=== PATIENT | female | born 1950 | race Caucasian/White ===

== ENCOUNTER 2025-05-12 12:26 | Inpatient (IN) | payer BC, OTHER ==
[~2025-05-12] VITALS: Ht 167.6 cm; Wt 79.3 kg
[~2025-05-12 12:26] MED LIST: ATEN1TAB; ESOM40CA39; SIMV40TA18; WARF5TAB; calcium
--- NOTE | 2025-05-12 13:03 | ED.PDOC ---
HPI Comments Patient is a 75-year-old female with past medical history of paroxysmal AFib diagnosed in 2020 s/p cardioversion 2022, hypertension, GERD, hypothyroidism, dyslipidemia, peripheral vascular disease s/p left lower extremity grafting, who was brought in by EMS for palpitations that has been ongoing for the past 3 weeks. According to the patient, she has been having increasing palpitations for the past 3 weeks and associated shortness of breaths with exertion for the last 2 weeks, earlier today she drove herself to the [facility] in his area where she was noted to have AFib with RVR, heart rate 120-1 40s and was subsequently brought to the ER by the EMS. According to the patient she had similar symptoms in 2022 when she underwent cardioversion. Patient notes her shortness of breath on exertion was particularly worse on Thursday as she was bringing groceries inside and felt very winded and that she could not catch her breath. On review of systems patient is complaining of shortness of breath on exertion, increasing stress and anxiety, depression but no suicidal or homicidal ideation. Past medical history:paroxysmal AFib diagnosed in 2020 s/p cardioversion 2022, hypertension, GERD, hypothyroidism, dyslipidemia, peripheral vascular disease s/p left lower extremity grafting Past surgical history: Bilateral mastectomy, left lower extremity grafting Home medications: Metoprolol, amlodipine, losartan, Pradaxa 75 mg b.i.d., Lasix 40 mg, levothyroxine 88 mcg, atorvastatin, amlodipine, mirtazapine Social & Personal history: Denies smoking, remote history of 30 pack years. Denies using alcohol, denies using drugs. Lives at home with , son and granddaughter. Allergies: Keflex, Vasotec, sulfa drugs, NSAIDs Patient seen and examined at bedside. Patient is alert and oriented to time, place person and responding to all questions. Eyes: No Pain, No Vision change, No Conjunctivae inflammation, No Eyelid inflammation, No Other, No Redness ENT: No Ear pain, No Ear discharge, No Nose pain, No Nose discharge, No Nose congestion, No Mouth pain, No Mouth swelling, No Throat pain, No Throat swelling, No Other Cardiovascular: No Chest Pain, Palpitations, No Orthopnea, No Paroxysmal No Dyspnea, No Edema, No Lt Headedness, No Other Respiratory: No Cough, No Dry, No Shortness of breath, SOB with exertion, No Wheezing, No Hemoptysis, No Pleuritic Pain, No Sputum, No Other Gastrointestinal: No Nausea, No Vomiting, No Abdominal Pain, No Diarrhea, No Constipation, No Melena, No Hematochezia, No Other Genitourinary: No Dysuria, No Frequency, No Incontinence, No Hematuria, No Retention, No Other Musculoskeletal: No other, No neck pain, No shoulder pain, No arm pain, No back pain, No hand pain, No leg pain, No foot pain Skin: No Rash, No Lesions, No Jaundice, No Bruising, No Other Chief Complaint: Palpitations Time Seen by MD: 12:45 Primary Care Provider: lindsey Sampson Notes: Tectonophysicist Notes Allergies: Coded Allergies: Cephalexin (Verified Adverse Reaction, Mild, sensitive, 11/18/10) Enalapril (Verified Adverse Reaction, Mild, sensitive, 11/18/10) Home Meds Active Scripts Metoprolol Tartrate (Lopressor) 25 Mg Tb, 50 MG PO BID, #60 TAB 5 Refills Prov:THALIA OWUSU MD 05/18/25 Reported Medications Mirtazapine (REMERON) 30 Mg Tab, 15 MG OR, TAB 05/13/25 Amlodipine Besylate (Amlodipine Besylate) 5 Mg Tab, 5 MG PO HS for 30 Days, MG 05/13/25 Allopurinol (Allopurinol) 100 Mg Tab, 100 MG PO DAILY for 30 Days, MG 05/13/25 Atorvastatin Calcium (Lipitor) 10 Mg Tab, 1 TAB PO QPM, #90 TAB 1 Refill 05/13/25 Levothyroxine Sodium (Levothyroxine Sodium) 88 Mcg Tab, 88 MCG PO QAM for 30 Days, MCG 05/13/25 Losartan Potassium (Losartan Potassium) 50 Mg Tab, 50 MG PO DAILY for 30 Days, MG 05/13/25 Pantoprazole Sodium Sesquihydr (Protonix) 40 Mg Tab, 40 MG PO DAILY, #30 TAB 05/13/25 Dabigatran Etexilate Mesylate (Pradaxa) 75 Mg Cap, 1 CAP PO BID, #60 CAP 5 Refills 05/13/25 Potassium Chloride (Klor-Con M20) 20 Meq Tab, 20 MEQ PO, TAB 05/13/25 Furosemide (Furosemide) 40 Mg Tab, 40 MG PO DAILY for 30 Days 05/13/25 [calcium] No Conflict Check 11/18/10 Esomeprazole Magnesium Trihydr (Nexium) 40 Mg Cap 11/18/10 Simvastatin (Simvastatin) 40 Mg Tab 11/18/10 Warfarin Sodium (Coumadin) 5 Mg Tab 11/18/10 Discontinued Reported Medications Metoprolol Succinate (Metoprolol Succinate Er) 25 Mg Tab, 25 MG PO BID for 30 Days, MG 05/13/25 Atenolol (Tenormin) 100 Mg Tab 11/18/10 Information Source: Patient, Emergency Med Personnel Mode of Arrival: EMS Severity: Moderate Timing: Weeks Duration: Since onset Prehospital treatment: 12 Lead EKG, Other (Metoprolol 25 mg p.o. x2) Associated Signs and Symptoms: SOB, Palpitations Past Medical History Surgical History: Hysterectomy Family History Family History: No family hx of Cancer, No family hx of DM, No family hx of HTN Social History Smoker: Quit Greater Than 1 Year Alcohol: Denies ETOH Use Drugs: Denies Drug Use Lives In: Home Physical Exam General Appearance: Mild Distress HEENT: Normal ENT Inspection, PERRL/EOMI Neck: None, Non-Tender, Normal, Normal Inspection Respiratory: Lungs Clear, No Accessory Muscle Use, No Respiratory Distress, Normal Breath Sounds Cardiovascular: Irregular, No Murmur, Tachycardia Breast Exam: Deferred Gastrointestinal: Non Tender, No Pulsatile Mass, Normal Bowel Sounds Genitalia: Deferred Pelvic: Deferred Rectal: Rectal Exam not done Extremities: No calf tenderness, Normal inspection, Normal range of motion, Non-tender, Pedal edema (1+ lower extremity edema) Neurologic: Alert, No Motor Deficits, Normal Mood, No Sensory Deficits Cerebellar Function: NOT DONE Reflexes: NOT DONE Skin: Dry, None, Warm Peripheral Pulses: 2+ dorsalis pedis (R); 1+ dorsalis pedis (L) Lymphatic: NOT DONE Was a procedure done? Was a procedure done?: No CP Differential Dx Differential Diagnosis: A-fib, Anxiety / Panic Attack, Atrial Dysrhythmia, Heart Failure X-Ray, Labs, Meds, VS Vital Signs Date Time Temp Pulse Resp B/P (MAP) Pulse Ox O2 Delivery O2 Flow Rate FiO2 05/12/25 15:11 124 145/64 05/12/25 15:09 124 18 145/64 (91) 95 05/12/25 14:11 117 145/72 05/12/25 13:12 20 Room Air* 0 21 05/12/25 13:12 98.1 123 20 153/113 (126) 97 98.1 05/12/25 13:12 121 05/12/25 12:43 97.6 142 20 123/81 99 97.6 Lab Test 05/12/25 14:25 05/12/25 13:58 05/12/25 13:28 Range/Units Troponin I High Sensitivity 5 5 </=34 ng/L Urine Color Colorless Yellow Urine Clarity Turbid H Clear Urine pH 6.0 5.0-9.0 Urine Specific Rindge 1.005 1.001-1.035 Urine Protein Negative Negative Urine Ketones Negative Negative Urine Blood Negative Negative /uL Urine Nitrite Negative Negative Urine Bilirubin Negative Negative Urine Urobilinogen Normal Negative mg/dL Urine Leukocyte Esterase 3+ Negative /uL Urine RBC 4 0 - 4 /hpf Urine Microscopic WBC 64 H 0-5 /HPF Urine Squamous Epithelial Cells Few <5 /hpf Urine Bacteria Few H None Seen /hpf Urine Glucose Normal Normal mg/dL White Blood Count 8.1 4.4-10.8 10^3/uL Red Blood Count 4.04 4.0-5.20 10^6/uL Hemoglobin 12.6 12.2-16.2 g/dL Hematocrit 37.9 36.0-46.0 % Mean Corpuscular Volume 93.8 80.0-100.0 fL Mean Corpuscular Hemoglobin 31.2 28.0-32.0 pg Mean Corpuscular Hemoglobin Concent 33.3 32.0-36.0 g/dL Red Cell Distribution Width 14.7 H 11.8-14.3 % Platelet Count 227 140-450 10^3/uL Mean Platelet Volume 9.0 6.9-10.8 fL Neutrophils (%) (Auto) 79.8 37.0-80.0 % Lymphocytes (%) (Auto) 12.7 10.0-50.0 % Monocytes (%) (Auto) 5.8 0.0-12.0 % Eosinophils (%) (Auto) 1.1 0.0-7.0 % Basophils (%) (Auto) 0.6 0.0-2.0 % Neutrophils # (Auto) 6.5 1.6-8.6 10 ^3/uL Lymphocytes # (Auto) 1.0 0.4-5.4 10 ^3/uL Monocytes # (Auto) 0.5 0-1.3 10 ^3/uL Eosinophils # (Auto) 0.1 0-0.8 10 ^3/uL Basophils # (Auto) 0 0-0.2 10 ^3/uL Nucleated Red Blood Cells 0.1 % Sodium Level 144 136-145 mmol/L Potassium Level 4.7 3.5-5.1 mmol/L Chloride Level 108 H 98-107 mmol/L Carbon Dioxide Level 23 20-31 mmol/L Anion Gap 13 5-15 Blood Urea Nitrogen 14 9-23 mg/dL Creatinine 1.68 H 0.550-1.02 mg/dL Glomerular Filtration Rate Calc 31 >90 mL/min BUN/Creatinine Ratio 8.3 L 10.0-20.0 Serum Glucose 99 74-106 mg/dL Calcium Level 9.6 8.7-10.4 mg/dL Magnesium Level 2.0 1.6-2.6 mg/dL B-Type Natriuretic Peptide 250.98 0-100 pg/mL Thyroid Stimulating Hormone (TSH) 0.79 0.55-4.78 uIU/mL Microbiology Date/Time Source Procedure Growth Status 05/12/25 13:58 Voided Urine Urine Culture - Final Complete Time of 1ST Reevaluation: 13:45 Reevaluation 1ST: Improved Patient Education/Counseling: Diagnosis, Treatment, Prognosis, Need For Follow Up Family Education/Counseling: No Family Present SEPSIS Sepsis Screen Date sepsis recognized/suspect: May 12, 2025 Time Sepsis recognized/suspect: 1248 Recent Procedure: No On Antibiotic Therapy: No Respiratory Rate >20: No Heart Rate >90: No Temp<36 C (96.8 F) or >38.3 C: No SBP <90 or MAP <65 mmHG: No New Acute Mental Status Change: No Is the patient on CPAP, BIPAP,: No Physician Orders Chest Portable (05/12/25 12:55) Electrocardigram (05/12/25 12:59) Admit (05/12/25 15:10) * Cardiology Consult (05/12/25 15:10) Oxygen By Nasal Cannula (05/12/25 15:10) Echo 2d Mode Cardiac Dop (05/13/25 15:11) Vital Signs Date Time Temp Pulse Resp B/P (MAP) Pulse Ox O2 Delivery O2 Flow Rate FiO2 05/12/25 15:11 124 145/64 05/12/25 15:09 124 18 145/64 (91) 95 05/12/25 14:11 117 145/72 05/12/25 13:12 20 Room Air* 0 21 05/12/25 13:12 98.1 123 20 153/113 (126) 97 98.1 05/12/25 13:12 121 05/12/25 12:43 97.6 142 20 123/81 99 97.6 Laboratory Tests Test 05/12/25 13:28 White Blood Count 8.1 10^3/uL (4.4-10.8) Departure 1 Departure Time of Disposition: 14:00 Impression: Primary Impression: Atrial fibrillation with RVR Additional Impression: IVETT (acute kidney injury) Disposition: ADMITTED INPATIENT Admit to: Tele Condition: Guarded e-Prescriptions Metoprolol Tartrate (Lopressor) 25 Mg Tb 50 MG PO BID, #60 TAB 5 Refills Prov: THALIA OWUSU MD 05/18/25 Critical Care Note Critical Care Time?: No Stability Stability form required: No Heart Score Heart Score: Heart Score Response (Comments) Value History Moderate Suspicious 1 EKG Normal 0 Age >65 2 Risk Factors >3 or Hx ASHD 2 Troponin Normal limit 0 Total 5 ERICA MEREDITH RESIDENT May 12, 2025 13:03
[2025-05-12 13:12] VITALS: RESP 20
--- NOTE | 2025-05-12 13:44 | DVH ---
CHEST RADIOGRAPH INDICATION: sob TECHNIQUE: Single frontal view of the chest was obtained COMPARISON: None FINDINGS: Lines and Tubes: None Lungs: No focal consolidation. Pleura: No effusion. No pneumothorax. Cardiomediastinal contours: Unremarkable Bones: No acute osseous abnormality. IMPRESSION: 1. No acute cardiopulmonary disease.
[2025-05-12 13:52] LABS: Hematocrit 37.9 % (36.0-46.0); Hemoglobin 12.6 g/dL (12.2-16.2); Mean Corpuscular Hemoglobin 31.2 pg (28.0-32.0); Mean Corpuscular Volume 93.8 fL (80.0-100.0); Nucleated Red Blood Cells % 0.1 %
[2025-05-12 13:59] LABS: Potassium 4.7 mmol/L (3.5-5.1); Sodium 144 mmol/L (136-145)
[2025-05-12 14:00] LABS: Anion Gap 13 (5-15); Calcium 9.6 mg/dL (8.7-10.4); Carbon Dioxide 23 mmol/L (20-31); Chloride 108 mmol/L (98-107)
[2025-05-12] MEDS: METOPROLOL TARTRATE 1MG/1ML-5ML VIAL IV ONE (14:00)
[2025-05-12 14:05] LABS: BUN/Creatinine Ratio 8.3 (10.0-20.0); Blood Urea Nitrogen 14 mg/dL (9-23); Glucose 99 mg/dL (74-106)
[2025-05-12 14:06] LABS: Magnesium 2.0 mg/dL (1.6-2.6)
[2025-05-12 14:13] LABS: Urine Protein, UAD Negative (Negative)
--- NOTE | 2025-05-12 16:40 | DVHHPRES ---
History of Present Illness Resident Creating Document: SHASHANK MOORE RESIDENT History of Present Illness 75-year-old female with past medical history of paroxysmal AFib diagnosed in 2020 status post cardioversion, hypertension, gout, hypothyroidism, dyslipidemia, peripheral vascular disease status post left lower extremity richardson ting presented with complaints of palpitation and elevated heart rate. Patient mentioned for last three weeks her blood pressure monitor shows that she has been having heart rate 97-137. She also mentioned associated palpitations. She denied any chest pain and shortness of breath, nausea, vomiting, abdominal pain, dizziness, headache. Patient decided to come to the ER as her elevated heart rate was not getting better. Presenting to the ER patient was diagnosed with AFib with RVR, was given metoprolol IV. Patient mentioned that she was on amiodarone but was recently stopped by her PCP. Patient is currently not on any DOAC. Past medical history paroxysmal AFib diagnosed in 2020 status post cardioversion, hypertension, gout, hypothyroidism, dyslipidemia, peripheral vascular disease status post left lower extremity grafting Surgical history Bilateral mastectomy, lower extremity grafting, cardioversion Medication history Metoprolol, amlodipine, losartan, Pradaxa b.i.d. 75 mg, Lasix, levothyroxine 88 mcg, atorvastatin, amlodipine, metolazone Family history Nonsignificant to the above illness Allergic history Keflex and enalapril, Vasotec, sulfa drugs, NSAIDs Social history Patient used to smoke in the past, quit 20 years ago, smoked for 30 years Denied alcohol, marijuana, any other drug intake Denied caffeine Review of Systems Review of Systems As described in the HPI Allergies: Coded Allergies: Cephalexin (Verified Adverse Reaction, Mild, sensitive, 11/18/10) Enalapril (Verified Adverse Reaction, Mild, sensitive, 11/18/10) Exam Vital Signs Vital Signs Date Time Temp Pulse Resp B/P (MAP) Pulse Ox O2 Delivery O2 Flow Rate FiO2 05/12/25 15:11 124 145/64 05/12/25 15:09 18 95 05/12/25 13:12 Room Air* 0 21 05/12/25 13:12 98.1 98.1 Exam Examination General Appearance: Alert, Oriented X3, Cooperative, No acute distress HEENT: EOMI Respiratory: Clear to auscultation, Normal air movement Cardiovascular: Regular rate, Normal S1, Normal S2 Abdominal: Normal bowel sounds Extremities: No cyanosis, No edema, Normal pulses, No tenderness/swelling Skin: No rashes, No breakdown Neuro: Normal speech and tone Labs/Xrays Labs Test 05/12/25 14:25 05/12/25 13:58 05/12/25 13:28 Range/Units Troponin I High Sensitivity 5 </=34 ng/L Urine Color Colorless Yellow Urine Clarity Turbid H Clear Urine pH 6.0 5.0-9.0 Urine Specific Porter 1.005 1.001-1.035 Urine Protein Negative Negative Urine Ketones Negative Negative Urine Blood Negative Negative /uL Urine Nitrite Negative Negative Urine Bilirubin Negative Negative Urine Urobilinogen Normal Negative mg/dL Urine Leukocyte Esterase 3+ Negative /uL Urine RBC 4 0 - 4 /hpf Urine Microscopic WBC 64 H 0-5 /HPF Urine Squamous Epithelial Cells Few <5 /hpf Urine Bacteria Few H None Seen /hpf Urine Glucose Normal Normal mg/dL White Blood Count 8.1 4.4-10.8 10^3/uL Red Blood Count 4.04 4.0-5.20 10^6/uL Hemoglobin 12.6 12.2-16.2 g/dL Hematocrit 37.9 36.0-46.0 % Mean Corpuscular Volume 93.8 80.0-100.0 fL Mean Corpuscular Hemoglobin 31.2 28.0-32.0 pg Mean Corpuscular Hemoglobin Concent 33.3 32.0-36.0 g/dL Red Cell Distribution Width 14.7 H 11.8-14.3 % Platelet Count 227 140-450 10^3/uL Mean Platelet Volume 9.0 6.9-10.8 fL Neutrophils (%) (Auto) 79.8 37.0-80.0 % Lymphocytes (%) (Auto) 12.7 10.0-50.0 % Monocytes (%) (Auto) 5.8 0.0-12.0 % Eosinophils (%) (Auto) 1.1 0.0-7.0 % Basophils (%) (Auto) 0.6 0.0-2.0 % Neutrophils # (Auto) 6.5 1.6-8.6 10 ^3/uL Lymphocytes # (Auto) 1.0 0.4-5.4 10 ^3/uL Monocytes # (Auto) 0.5 0-1.3 10 ^3/uL Eosinophils # (Auto) 0.1 0-0.8 10 ^3/uL Basophils # (Auto) 0 0-0.2 10 ^3/uL Nucleated Red Blood Cells 0.1 % Sodium Level 144 136-145 mmol/L Potassium Level 4.7 3.5-5.1 mmol/L Chloride Level 108 H 98-107 mmol/L Carbon Dioxide Level 23 20-31 mmol/L Anion Gap 13 5-15 Blood Urea Nitrogen 14 9-23 mg/dL Creatinine 1.68 H 0.550-1.02 mg/dL Glomerular Filtration Rate Calc 31 >90 mL/min BUN/Creatinine Ratio 8.3 L 10.0-20.0 Serum Glucose 99 74-106 mg/dL Calcium Level 9.6 8.7-10.4 mg/dL Magnesium Level 2.0 1.6-2.6 mg/dL B-Type Natriuretic Peptide 250.98 0-100 pg/mL Thyroid Stimulating Hormone (TSH) 0.79 0.55-4.78 uIU/mL SEPSIS Sepsis Screen Date sepsis recognized/suspect: May 12, 2025 Time Sepsis recognized/suspect: 1311 Recent Procedure: No On Antibiotic Therapy: No Respiratory Rate >20: No Heart Rate >90: Yes Temp<36 C (96.8 F) or >38.3 C: No SBP <90 or MAP <65 mmHG: No New Acute Mental Status Change: No Is the patient on CPAP, BIPAP,: No Physician Orders Chest Portable (05/12/25 12:55) Troponin-I Hs (05/12/25 15:55) Electrocardigram (05/12/25 12:59) Admit (05/12/25 15:10) * Cardiology Consult (05/12/25 15:10) Stat Ekg For Chest Pain (05/12/25 15:10) Notify Md Of Changes From Base (05/12/25 15:10) Dental Chair Assembler For 24 Hours (05/12/25 15:10) Emergency Dysrhythmia Protocol (05/12/25 15:10) Rhythm Strips Once Every Shift (05/12/25 15:10) Oxygen By Nasal Cannula (05/12/25 15:10) Echo 2d Mode Cardiac Dop (05/12/25 15:11) Vital Signs Date Time Temp Pulse Resp B/P (MAP) Pulse Ox O2 Delivery O2 Flow Rate FiO2 05/12/25 15:11 124 145/64 05/12/25 15:09 124 18 145/64 (91) 95 05/12/25 14:11 117 145/72 05/12/25 13:12 20 Room Air* 0 21 05/12/25 13:12 98.1 123 20 153/113 (126) 97 98.1 05/12/25 13:12 121 05/12/25 12:43 97.6 142 20 123/81 99 97.6 Laboratory Tests Test 05/12/25 13:28 White Blood Count 8.1 10^3/uL (4.4-10.8) Medications Medications Dose Ordered Sig/Kasi Route Start Time Stop Time Status Last Admin Dose Admin Metoprolol Tartrate 5 mg ONCE ONCE IV 05/12/25 13:00 05/12/25 13:01 DC 05/12/25 14:11 5 MG Assessment/Plan Assessment/Plan Assessment/plan # paroxysmal AFib CHADS-VASc score 4 Has bled score 2 Cardiology on board metoprolol lovenox # ?UTI -urine culture #hypertension -metoprolol -resume home meds #GERD protonix #hypothyroidism levothyroxine #dyslipidemia atorvastatin #peripheral vascular disease status post left lower extremity grafting atorvastatin resume home meds Code status discussed with the patient for greater than 21 minutes, full code Case discussion with Dr. Currie Plan discussed with: Patient, Other My Orders Orders - SHASHANK MOORE RESIDENT Procedure Category Date Status Time Admit ADMIT 05/12/25 Transmitted 15:10 * Cardiology Consult CONS 05/12/25 Transmitted 15:10 Stat Ekg For Chest [facility] 05/12/25 In Process Pain 15:10 Notify Of Changes [facility] 05/12/25 In Process From Base 15:10 Dental Chair Assembler For [facility] 05/12/25 In Process 24 Hours 15:10 Emergency Dysrhythmia ERICA 05/12/25 In Process Protocol 15:10 Rhythm Strips Once [facility] 05/12/25 In Process Every Shift 15:10 Oxygen By Nasal RT 05/12/25 Transmitted Cannula 15:10 Echo 2d Mode Cardiac US 05/12/25 Logged DOP 15:11 Visit Coding STANDARD RES Billing Provider: ELIZABETH CURRIE MD Date of Service if different f: May 12, 2025 Common Visit Codes: [id number] INP/OBS CARE (HIGH) Secondary Visit Codes: [id number] CARE PLAN 30 MINUTES SHASHANK MOORE RESIDENT May 12, 2025 16:40
--- NOTE | 2025-05-12 16:41 | DVHINCON2 ---
Date Seen: May 12, 2025 Referring Physician MD [place] resident Reason for Consultation Afib RVR History of Present Illness This is a 75-year-old female patient who presents to the emergency room with chief complaint of palpitations. The patient reports that she checks her blood pressure and pulse at home every day prior to administering her medications. She reports that for the last three weeks she has noticed that her heart rate has been consistently high. She also reports occasional palpitations at home. This prompted her to come to the emergency room for further evaluation. Initial twelve lead electrocardiogram done in the emergency room reveals atrial fibr illation with rapid ventricular response and underlying right bundle branch block. Initial troponin level of 5ng/L. Significant past medical history includes congestive heart failure, atrial fibrillation/atrial flutter s/p ELDER and direct current cardioversion (on Pradaxa), peripheral arterial disease status post left lower extremity revascularization, hypertension, dyslipidemia, gout, chronic kidney disease, thyroid disease, and history of tobacco use. Past Medical History Past medical history reviewed. No other significant than mentioned above. Past Surgical History Tubal ligation in 1972 Hysterectomy in 1974 Bilateral mastectomy with implants in 1977 Removal of bilateral implants in 1978 Unspecified left foot surgery involving the 4th and 5th digits in 1982 Left common femoral artery endarterectomy and left fem/pop bypass in 2001 Aortobifemoral angiogram with stenting and angioplasty in 2008 Left femoral to below-knee popliteal bypass in 2009 Left leg angio/revascularization in 2010 Emergent left femoral/tibial bypass graft in 2011 ELDER and cardioversion in 2022 Family History Family history reviewed. Social History The patient has a 30 pack-year history, quit smoking 16 years ago Denies illicit drug use Denies alcohol use Allergies: Coded Allergies: Cephalexin (Verified Adverse Reaction, Mild, sensitive, 11/18/10) Enalapril (Verified Adverse Reaction, Mild, sensitive, 11/18/10) Home Meds Reported Medications [calcium] No Conflict Check 11/18/10 Esomeprazole Magnesium Trihydr (Nexium) 40 Mg Cap 11/18/10 Atenolol (Tenormin) 100 Mg Tab 11/18/10 Simvastatin (Simvastatin) 40 Mg Tab 11/18/10 Warfarin Sodium (Coumadin) 5 Mg Tab 11/18/10 Home Meds Home medications reviewed. Review of Systems Constitutional: No symptom reported Ears, Nose, & Throat: No symptom reported Eyes: No symptom reported Neurological: No symptoms reported Pulmonary/Respiratory: No symptoms reported Cardiovascular: Palpitations Gastrointestinal: No symptom reported Genitourinary: No symptom reported Musculoskeletal: No symptom reported Skin: No symptom reported Psychiatric: No symptom reported Endocrine: No symptom reported Hematologic/Lymphatic: No symptom reported Vital Signs Vital Signs Date Time Temp Pulse Resp B/P (MAP) Pulse Ox O2 Delivery O2 Flow Rate FiO2 05/12/25 15:11 124 145/64 05/12/25 15:09 18 95 05/12/25 13:12 Room Air* 0 21 05/12/25 13:12 98.1 98.1 Physical Exam General Appearance: Cooperative. Well-developed. Well-nourished. No acute distress. Pulmonary/Respiratory: Clear, bilateral breaths sounds. Cardiovascular/Chest: Irregularly irregular rate and rhythm Peripheral Pulses: 2+ Radial (R). 2+ Radial (L). 2+ Pedal (R). 2+ Pedal (L) Abdominal Exam: Normal bowel sounds. Ankle Exam: Negative ankle edema Lower extremities: Negative lower extremity edema Neuro/Mental Status: A/OX4, coherent. Thoughts/Psych: Normal thought pattern. Appropriate mood and affect. Good ju dgment and insight. Appearance: No acute distress. Skin Exam: Normal inspection. Normal color. Warm and dry. Labs/Diagnostic Data Labs Test 05/12/25 14:25 05/12/25 13:58 05/12/25 13:28 Range/Units Troponin I High Sensitivity 5 </=34 ng/L Urine Color Colorless Yellow Urine Clarity Turbid H Clear Urine pH 6.0 5.0-9.0 Urine Specific [place] 1.005 1.001-1.035 Urine Protein Negative Negative Urine Ketones Negative Negative Urine Blood Negative Negative /uL Urine Nitrite Negative Negative Urine Bilirubin Negative Negative Urine Urobilinogen Normal Negative mg/dL Urine Leukocyte Esterase 3+ Negative /uL Urine RBC 4 0 - 4 /hpf Urine Microscopic WBC 64 H 0-5 /HPF Urine Squamous Epithelial Cells Few <5 /hpf Urine Bacteria Few H None Seen /hpf Urine Glucose Normal Normal mg/dL White Blood Count 8.1 4.4-10.8 10^3/uL Red Blood Count 4.04 4.0-5.20 10^6/uL Hemoglobin 12.6 12.2-16.2 g/dL Hematocrit 37.9 36.0-46.0 % Mean Corpuscular Volume 93.8 80.0-100.0 fL Mean Corpuscular Hemoglobin 31.2 28.0-32.0 pg Mean Corpuscular Hemoglobin Concent 33.3 32.0-36.0 g/dL Red Cell Distribution Width 14.7 H 11.8-14.3 % Platelet Count 227 140-450 10^3/uL Mean Platelet Volume 9.0 6.9-10.8 fL Neutrophils (%) (Auto) 79.8 37.0-80.0 % Lymphocytes (%) (Auto) 12.7 10.0-50.0 % Monocytes (%) (Auto) 5.8 0.0-12.0 % Eosinophils (%) (Auto) 1.1 0.0-7.0 % Basophils (%) (Auto) 0.6 0.0-2.0 % Neutrophils # (Auto) 6.5 1.6-8.6 10 ^3/uL Lymphocytes # (Auto) 1.0 0.4-5.4 10 ^3/uL Monocytes # (Auto) 0.5 0-1.3 10 ^3/uL Eosinophils # (Auto) 0.1 0-0.8 10 ^3/uL Basophils # (Auto) 0 0-0.2 10 ^3/uL Nucleated Red Blood Cells 0.1 % Sodium Level 144 136-145 mmol/L Potassium Level 4.7 3.5-5.1 mmol/L Chloride Level 108 H 98-107 mmol/L Carbon Dioxide Level 23 20-31 mmol/L Anion Gap 13 5-15 Blood Urea Nitrogen 14 9-23 mg/dL Creatinine 1.68 H 0.550-1.02 mg/dL Glomerular Filtration Rate Calc 31 >90 mL/min BUN/Creatinine Ratio 8.3 L 10.0-20.0 Serum Glucose 99 74-106 mg/dL Calcium Level 9.6 8.7-10.4 mg/dL Magnesium Level 2.0 1.6-2.6 mg/dL B-Type Natriuretic Peptide 250.98 0-100 pg/mL Thyroid Stimulating Hormone (TSH) 0.79 0.55-4.78 uIU/mL Assessment Atrial fibrillation with rapid ventricular response (on Pradaxa) History of direct current cardioversion in 2022 Rule out structural heart disease History of peripheral arterial disease status post left lower extremity revascularization Hypertension Dyslipidemia Chronic kidney disease Thyroid disease Gout History of tobacco use Plan/Recommendation We will continue with the following plan/recommendations (Dr. Matthews): * Transthoracic echocardiogram to evaluate cardiac function * [id number] VASc score: 6 points, HAS-BLED score: 1 point * Therapeutic Lovenox while inpatient, transition back to DOAC (Pradaxa) prior to discharge * Beta-candido for rate control; up titrate as tolerated * Avoid antiarrhythmic agent at this time given unknown duration of atrial f ibrillation * Monitor and replete electrolytes as needed, keep potassium greater than four and magnesium greater than two * Continue lipid-lowering agent * Blood pressure control * Close cardiac surveillance Thank you for allowing us to care for this patient. Please call with any questions or concerns. Critical care time spent: 44 minutes This medical document was created using an electronic medical record system with voice recognition software and computerized dictation system. Although this do cument has been carefully reviewed, there might still be some phonetic and typographical errors. Occasional wrong-word or ``sound-alike substitutions may have occurred due to the inherent limitations of voice recognition software. These areas are purely typographical due to imperfections of the software programs and do not reflect any compromise in the patient's medical care. Please read the chart carefully and recognize, using context, where these substitutions have occurred. Plan discussed with: Patient NYHA Physical activity limitations: NA Date of Service: May 12, 2025 Billing Provider: ABI SCHAFER Cardiology Common Codes: [id number] INP/OBS CARE (High) Cardiology Consultation Codes: [id number] CONSULT <45MIN ABI SCHAFER May 12, 2025 16:41
[2025-05-12 17:58] LABS: INR 1.17 (0.9-1.15); Partial Thromboplastin Time 43.5 SEC (24.5-34.5); Prothrombin Time 12.2 sec (9.3-11.8)
[2025-05-12 17:59] LABS: Alanine Aminotransferase 15.0 U/L (7-40); Albumin 4.4 g/dL (3.2-4.8); Bilirubin, Direct 0.2 mg/dL (<0.3); Bilirubin, Total 0.6 mg/dL (0.2-1.0); Cholesterol 112.0 mg/dL (< 200); Total Protein 6.9 g/dL (5.7-8.2); Triglycerides 137.0 mg/dL (< 150)
[2025-05-12 18:05] LABS: Alkaline Phosphatase 130.0 U/L (46-116); HDL Cholesterol 36.0 mg/dL (40-59)
[2025-05-12] MEDS: PANTOPRAZOLE 40 MG TAB PO ONE (18:49)
[2025-05-12] MEDS: LEVOTHYROXINE SODIUM 88 MCG TAB PO ONE (18:50)
[2025-05-12] MEDS: METOPROLOL TARTRATE 25 MG TAB PO ONE (18:53)
--- NOTE | 2025-05-12 23:04 | DVHINCON2 ---
Date Seen: May 12, 2025 Referring Physician MD [place] resident Reason for Consultation Afib RVR History of Present Illness This is a 75-year-old female with a past medical history includes congestive heart failure, atrial fibrillation/atrial flutter s/p ELDER and direct current cardioversion (on Pradaxa), peripheral arterial disease status post left lower extremity revascularization, hypertension, dyslipidemia, gout, chronic kidney disease, thyroid disease, and history of tobacco use who presents to the emergency room with a complaint of palpitations. The patient reports that she checks her blood pressure and pulse at home every day prior to administering her medications. She reports that for the last three weeks she has noticed that her heart rate has been consistently high. She also reports occasional palpitations at home. This prompted her to come to the emergency room for further evaluation. Initial twelve lead electrocardiogram done in the emergency room reveals atrial fibrillation with rapid ventricular response and underlying right bundle branch block. Initial troponin level of 5ng/L. Chest x-ray showed NAD. Patient was admitted to the hospital. I am asked to consult on this patient. Past Medical History Past medical history reviewed. No other significant than mentioned above. Past Surgical History Tubal ligation in 1972 Hysterectomy in 1974 Bilateral mastectomy with implants in 1977 Removal of bilateral implants in 1978 Unspecified left foot surgery involving the 4th and 5th digits in 1982 Left common femoral artery endarterectomy and left fem/pop bypass in 2001 Aortobifemoral angiogram with stenting and angioplasty in 2008 Left femoral to below-knee popliteal bypass in 2009 Left leg angio/revascularization in 2010 Emergent left femoral/tibial bypass graft in 2011 ELDER and cardioversion in 2022 Allergies: Coded Allergies: Cephalexin (Verified Adverse Reaction, Mild, sensitive, 11/18/10) Enalapril (Verified Adverse Reaction, Mild, sensitive, 11/18/10) Home Meds Reported Medications [calcium] No Conflict Check 11/18/10 Esomeprazole Magnesium Trihydr (Nexium) 40 Mg Cap 11/18/10 Atenolol (Tenormin) 100 Mg Tab 11/18/10 Simvastatin (Simvastatin) 40 Mg Tab 11/18/10 Warfarin Sodium (Coumadin) 5 Mg Tab 11/18/10 Current Medications Current Medications Medications (Trade) Dose Ordered Sig/Kasi Route PRN Reason Start Time Stop Time Status Last Admin Metoprolol Tartrate (Lopressor Tablet) 25 mg BID PO 05/12/25 22:00 Pantoprazole Sodium (Protonix Tablet) 40 mg DAILY@0600 PO 05/13/25 06:00 Levothyroxine Sodium (Synthroid Tablet) 88 mcg QAM@0600 PO 05/13/25 06:00 Atorvastatin Calcium (Lipitor) 40 mg HS PO 05/12/25 22:00 Levofloxacin 100 ml @ 100 mls/hr DAILY IV 05/13/25 10:00 05/12/25 18:25 DC Enoxaparin Sodium (Lovenox) 80 mg Q12HR SC 05/12/25 22:00 Review of Systems Constitutional: No symptom reported Ears, Nose, & Throat: No symptom reported Eyes: No symptom reported Neurological: No symptoms reported Pulmonary/Respiratory: No symptoms reported Cardiovascular: Palpitations Gastrointestinal: No symptom reported Genitourinary: No symptom reported Musculoskeletal: No symptom reported Skin: No symptom reported Psychiatric: No symptom reported Endocrine: No symptom reported Hematologic/Lymphatic: No symptom reported Vital Signs Vital Signs Date Time Temp Pulse Resp B/P (MAP) Pulse Ox O2 Delivery O2 Flow Rate FiO2 05/12/25 18:53 113 115/73 05/12/25 15:09 18 95 05/12/25 13:12 Room Air* 0 21 05/12/25 13:12 98.1 98.1 Physical Exam GENERAL: Alert and oriented x 3. No acute distress. EYES: PERRL, EOMI. Anicteric. HENT: Moist mucous membranes. LUNGS: Clear to auscultation bilaterally. CARDIOVASCULAR: Irregular rate and rhythm. ABDOMEN: Soft, nontender and nondistended. EXTREMITIES: No edema. NEUROLOGIC: No focal neurological deficits. SKIN: Warm, dry. Labs/Diagnostic Data Labs Test 05/12/25 16:50 05/12/25 13:58 05/12/25 13:28 Range/Units Prothrombin Time 12.2 H 9.3-11.8 sec Prothrombin Time INR 1.17 H 0.9-1.15 Activated Partial Thromboplast Time 43.5 H 24.5-34.5 SEC Total Bilirubin 0.6 0.2-1.0 mg/dL Direct Bilirubin 0.2 <0.3 mg/dL Aspartate Amino Transferase (AST) 21 13-40 U/L Alanine Aminotransferase (ALT) 15 7-40 U/L Alkaline Phosphatase 130 H 46-116 U/L Troponin I High Sensitivity 7 </=34 ng/L Total Protein 6.9 5.7-8.2 g/dL Albumin 4.4 3.2-4.8 g/dL Triglycerides Level 137 < 150 mg/dL Cholesterol Level 112 < 200 mg/dL LDL Cholesterol 57 < 100 mg/dL HDL Cholesterol 36 L 40-59 mg/dL Urine Color Colorless Yellow Urine Clarity Turbid H Clear Urine pH 6.0 5.0-9.0 Urine Specific [place] 1.005 1.001-1.035 Urine Protein Negative Negative Urine Ketones Negative Negative Urine Blood Negative Negative /uL Urine Nitrite Negative Negative Urine Bilirubin Negative Negative Urine Urobilinogen Normal Negative mg/dL Urine Leukocyte Esterase 3+ Negative /uL Urine RBC 4 0 - 4 /hpf Urine Microscopic WBC 64 H 0-5 /HPF Urine Squamous Epithelial Cells Few <5 /hpf Urine Bacteria Few H None Seen /hpf Urine Glucose Normal Normal mg/dL White Blood Count 8.1 4.4-10.8 10^3/uL Red Blood Count 4.04 4.0-5.20 10^6/uL Hemoglobin 12.6 12.2-16.2 g/dL Hematocrit 37.9 36.0-46.0 % Mean Corpuscular Volume 93.8 80.0-100.0 fL Mean Corpuscular Hemoglobin 31.2 28.0-32.0 pg Mean Corpuscular Hemoglobin Concent 33.3 32.0-36.0 g/dL Red Cell Distribution Width 14.7 H 11.8-14.3 % Platelet Count 227 140-450 10^3/uL Mean Platelet Volume 9.0 6.9-10.8 fL Neutrophils (%) (Auto) 79.8 37.0-80.0 % Lymphocytes (%) (Auto) 12.7 10.0-50.0 % Monocytes (%) (Auto) 5.8 0.0-12.0 % Eosinophils (%) (Auto) 1.1 0.0-7.0 % Basophils (%) (Auto) 0.6 0.0-2.0 % Neutrophils # (Auto) 6.5 1.6-8.6 10 ^3/uL Lymphocytes # (Auto) 1.0 0.4-5.4 10 ^3/uL Monocytes # (Auto) 0.5 0-1.3 10 ^3/uL Eosinophils # (Auto) 0.1 0-0.8 10 ^3/uL Basophils # (Auto) 0 0-0.2 10 ^3/uL Nucleated Red Blood Cells 0.1 % Sodium Level 144 136-145 mmol/L Potassium Level 4.7 3.5-5.1 mmol/L Chloride Level 108 H 98-107 mmol/L Carbon Dioxide Level 23 20-31 mmol/L Anion Gap 13 5-15 Blood Urea Nitrogen 14 9-23 mg/dL Creatinine 1.68 H 0.550-1.02 mg/dL Glomerular Filtration Rate Calc 31 >90 mL/min BUN/Creatinine Ratio 8.3 L 10.0-20.0 Serum Glucose 99 74-106 mg/dL Calcium Level 9.6 8.7-10.4 mg/dL Magnesium Level 2.0 1.6-2.6 mg/dL B-Type Natriuretic Peptide 250.98 0-100 pg/mL Thyroid Stimulating Hormone (TSH) 0.79 0.55-4.78 uIU/mL Assessment Atrial fibrillation with rapid ventricular response (on Pradaxa). History of direct current cardioversion in 2022. Rule out structural heart disease. History of peripheral arterial disease status post left lower extremity revascularization. Hypertension. Dyslipidemia. Chronic kidney disease. Thyroid disease. Gout. History of tobacco use. Plan/Recommendation I agree with your ongoing assessment and care of plan. Patient has been seen by Sadia Salgado NP on my behalf, her and I discussed the plan with the patient. Transthoracic echocardiogram to evaluate cardiac function. [id number] VASc score: 6 points, HAS-BLED score: 1 point. Therapeutic Lovenox while inpatient, transition back to DOAC (Pradaxa) prior to discharge. Beta-candido for rate control; up titrate as tolerated. Avoid antiarrhythmic agent at this time given unknown duration of atrial fibrill ation. Monitor and replete electrolytes as needed, keep potassium greater than four and magnesium greater than two. Continue lipid-lowering agent. Blood pressure control. Close cardiac surveillance. Additional plan as per the hospital course. Plan discussed with: Patient NYHA Physical activity limitations: NA Date of Service: May 12, 2025 Billing Provider: LORIN KASPER MD Cardiology Common Codes: [id number] INP/OBS CARE (High) Cardiology Consultation Codes: [id number] CONSULT <45MIN LORIN KASPER MD May 12, 2025 22:12
[2025-05-12] MEDS: METOPROLOL TARTRATE 25 MG TAB PO SCH (23:36)
[2025-05-12] MEDS: ENOXAPARIN SOD 80 MG/0.8ML SYRINGE SC SCH (23:37)
[2025-05-12] MEDS: ATORVASTATIN 20 MG TAB PO SCH (23:38)
[2025-05-13] VITALS (7 sets, daily range): BP systolic 102–145; BP diastolic 53–76; PULSE 69–98; RESP 14–17; TEMP 97.4–98.3; O2SAT 93–98
[2025-05-13] MEDS ORDERED: ATOR10TA PO (00:50)
[2025-05-13] MEDS ORDERED: ALLO100T PO (00:50)
[2025-05-13] MEDS ORDERED: FURO40TA4 PO (00:50)
[2025-05-13] MEDS ORDERED: LOSA-534 PO (00:50)
[2025-05-13] MEDS ORDERED: PANT40TA2 PO (00:50)
[2025-05-13] MEDS ORDERED: DABI75CA5 PO (00:50)
[2025-05-13] MEDS ORDERED: METO25TA93 PO (00:50)
[2025-05-13] MEDS ORDERED: LEVO88TA4 PO (00:50)
[2025-05-13] MEDS ORDERED: POTA-220 PO (00:50)
[2025-05-13] MEDS ORDERED: MIRT-94 OR (00:53)
[2025-05-13] MEDS ORDERED: AMLO1TAB22 PO (00:53)
[2025-05-13] MEDS: LEVOTHYROXINE SODIUM 88 MCG TAB PO SCH (06:27)
[2025-05-13] MEDS: PANTOPRAZOLE 40 MG TAB PO SCH (06:27)
[2025-05-13 07:06] LABS: Hematocrit 34.0 % (36.0-46.0); Hemoglobin 11.6 g/dL (12.2-16.2); Mean Corpuscular Hemoglobin 31.8 pg (28.0-32.0); Mean Corpuscular Volume 93.0 fL (80.0-100.0); Nucleated Red Blood Cells % 0.0 %
[2025-05-13 07:29] LABS: Alkaline Phosphatase 110 U/L (46-116); Anion Gap 12 (5-15); BUN/Creatinine Ratio 11.3 (10.0-20.0); Blood Urea Nitrogen 17 mg/dL (9-23); Calcium 9.0 mg/dL (8.7-10.4); Carbon Dioxide 25 mmol/L (20-31); Chloride 107 mmol/L (98-107); Glucose 82 mg/dL (74-106); Magnesium 2.0 mg/dL (1.6-2.6); Potassium 3.9 mmol/L (3.5-5.1); Sodium 144 mmol/L (136-145); Total Protein 6.4 g/dL (5.7-8.2)
[2025-05-13 07:30] LABS: Albumin 3.9 g/dL (3.2-4.8); Bilirubin, Total 0.7 mg/dL (0.2-1.0)
[2025-05-13 07:32] LABS: Alanine Aminotransferase < 9 U/L (7-40)
[2025-05-13] MEDS ORDERED: METOPROLOL TARTRATE 50 MG TAB PO ONE (10:45)
[2025-05-13] MEDS: METOPROLOL TARTRATE 25 MG TAB PO ONE (11:56)
--- NOTE | 2025-05-13 12:38 | DVHPN2 ---
Consult Progress Note Subjective Patient reports: Feels better Other Systems: Patient still in atrial fibrillation on personnel monitor, rate now in 90s- low 100's Objective vital signs Vital Sign Date Time Temp Pulse Resp B/P (MAP) Pulse Ox O2 Delivery O2 Flow Rate FiO2 05/13/25 11:56 98 123/69 05/13/25 08:47 98.1 16 93 98.1 05/13/25 08:00 Room Air* 0 21 Total Intake and Output 05/12/25 05/12/25 05/13/25 15:00 23:00 07:00 Intake Total 250 ml Output Total 0 ml Balance 250 ml medications Current Medications Medications Dose Ordered Sig/Kasi Route Start Time Stop Time Status Last Admin Dose Admin Pantoprazole Sodium 40 mg DAILY@0600 PO 05/13/25 06:00 05/13/25 06:27 40 MG Levothyroxine Sodium 88 mcg QAM@0600 PO 05/13/25 06:00 05/13/25 06:27 88 MCG Atorvastatin Calcium 40 mg HS PO 05/12/25 22:00 05/12/25 23:38 40 MG Enoxaparin Sodium 80 mg Q12HR SC 05/12/25 22:00 05/13/25 10:30 80 MG Metoprolol Tartrate 50 mg BID PO 05/13/25 22:00 Examination: GENERAL:Normal, LUNGS:Normal, CVS:Abnormal (Atrial fibrillation), NEURO:Normal laboratory and microbiology Laboratory Tests 05/13/25 06:07 Test 05/13/25 06:07 Range/Units Serum Glucose 82 74-106 mg/dL Problem List/Assessment/Plan Problem List/Assessment/Plan Atrial fibrillation with rapid ventricular response (on Pradaxa) History of direct current cardioversion in 2022 Rule out structural heart disease History of peripheral arterial disease status post left lower extremity revascularization Hypertension Dyslipidemia Chronic kidney disease Thyroid disease Gout History of tobacco use Plan/Recommendation (Dr. Matthews): * Transthoracic echocardiogram to evaluate cardiac function * [id number] VASc score: 6 points, HAS-BLED score: 1 point * Therapeutic Lovenox while inpatient, transition back to DOAC (Pradaxa) prior to discharge * Beta-candido for rate control; up titrate as tolerated * Avoid antiarrhythmic agent at this time given unknown duration of atrial fibrillation * Monitor and replete electrolytes as needed, keep potassium greater than four and magnesium greater than two * Continue lipid-lowering agent * Blood pressure control * Close cardiac surveillance Thank you for allowing us to care for this patient. Please call with any questions or concerns. This medical document was created using an electronic medical record system with voice recognition software and computerized dictation system. Although this document has been carefully reviewed, there might still be some phonetic and typographical errors. Occasional wrong-word or ``sound-alike substitutions may have occurred due to the inherent limitations of voice recognition software. These areas are purely typographical due to imperfections of the software programs and do not reflect any compromise in the patient's medical care. Please read the chart carefully and recognize, using context, where these substitutions have occurred. Plan discussed with: Patient, Son Date of Service: May 13, 2025 Billing Provider: ABI SCHAFER Common Visit Codes: [id number] INP/OBS CARE(HIGH) ABI SCHAFER May 13, 2025 12:38
--- NOTE | 2025-05-13 13:10 | DVHPN2 ---
Subjective HF improved Reviewed: H&P Changes from previous H/P or p: No Changes Objective Vitals Vital Signs Date Time Temp Pulse Resp B/P (MAP) Pulse Ox O2 Delivery O2 Flow Rate FiO2 05/13/25 12:46 97.8 95 17 126/68 (87) 93 97.8 05/13/25 08:00 Room Air* 0 21 Intake/Output Intake and Output 05/13/25 07:00 Intake Total 250 ml Output Total 0 ml Balance 250 ml Intake Oral 250 ml Output Stool Total 0 ml # Voids 1 General Appearance: Alert, Oriented X3 HEENT: Atraumatic Cardiovascular: Regular rate, Normal S1, Normal S2 Abdomen: Normal bowel sounds Medications Current Medications Medications Dose Ordered Sig/Kasi Route Start Time Stop Time Status Last Admin Dose Admin Pantoprazole Sodium 40 mg DAILY@0600 PO 05/13/25 06:00 05/13/25 06:27 40 MG Levothyroxine Sodium 88 mcg QAM@0600 PO 05/13/25 06:00 05/13/25 06:27 88 MCG Atorvastatin Calcium 40 mg HS PO 05/12/25 22:00 05/12/25 23:38 40 MG Enoxaparin Sodium 80 mg Q12HR SC 05/12/25 22:00 05/13/25 10:30 80 MG Metoprolol Tartrate 50 mg BID PO 05/13/25 22:00 Laboratory Results Laboratory Tests 05/13/25 06:07 Chemistry Test 05/12/25 13:28 05/12/25 16:50 05/13/25 06:07 Calcium Level 9.6 mg/dL (8.7-10.4) 9.0 mg/dL (8.7-10.4) Magnesium Level 2.0 mg/dL (1.6-2.6) 2.0 mg/dL (1.6-2.6) Albumin 4.4 g/dL (3.2-4.8) 3.9 g/dL (3.2-4.8) Total Protein 6.9 g/dL (5.7-8.2) 6.4 g/dL (5.7-8.2) Coagulation Test 05/12/25 16:50 Prothrombin Time 12.2 sec (9.3-11.8) H Prothrombin Time INR 1.17 (0.9-1.15) H Activated Partial Thromboplast Time 43.5 SEC (24.5-34.5) H Lipid panel Test 05/12/25 16:50 Cholesterol Level 112 mg/dL (< 200) HDL Cholesterol 36 mg/dL (40-59) L Triglycerides Level 137 mg/dL (< 150) Cardiac Markers Test 05/12/25 13:28 B-Type Natriuretic Peptide 250.98 pg/mL (0-100) LFT Test 05/12/25 16:50 05/13/25 06:07 Alanine Aminotransferase (ALT) 15 U/L (7-40) < 9 U/L (7-40) Alkaline Phosphatase 130 U/L (46-116) H 110 U/L (46-116) Aspartate Amino Transferase (AST) 21 U/L (13-40) 16 U/L (13-40) Direct Bilirubin 0.2 mg/dL (<0.3) Total Bilirubin 0.6 mg/dL (0.2-1.0) 0.7 mg/dL (0.2-1.0) HgA1c, TSH Test 05/12/25 13:28 05/13/25 06:07 Thyroid Stimulating Hormone (TSH) 0.79 uIU/mL (0.55-4.78) Hemoglobin A1c 5.5 % A1C (<5.7) Urinalysis Test 05/12/25 13:58 Urine Color Colorless (Yellow) Urine Clarity Turbid (Clear) H Urine pH 6.0 (5.0-9.0) Urine Specific [place] 1.005 (1.001-1.035) Urine Protein Negative (Negative) Urine Ketones Negative (Negative) Urine Blood Negative /uL (Negative) Urine Nitrite Negative (Negative) Urine Bilirubin Negative (Negative) Urine Urobilinogen Normal mg/dL (Negative) Urine Leukocyte Esterase 3+ /uL (Negative) Urine RBC 4 /hpf (0 - 4) Urine Microscopic WBC 64 /HPF (0-5) H Urine Squamous Epithelial Cells Few /hpf (<5) Urine Bacteria Few /hpf (None Seen) H Urine Glucose Normal mg/dL (Normal) Assessment/Plan Assessment/Plan # paroxysmal AFib CHADS-VASc score 4 Has bled score 2 Cardiology on board metoprolol lovenox # ?UTI -urine culture #hypertension -metoprolol -resume home meds GERD protonix hypothyroidism levothyroxine dyslipidemia atorvastatin Plan discussed with: Patient Date of Service: May 13, 2025 Billing Provider: PETE COOK MD Common Visit Codes: [id number] INP/OBS CARE(HIGH) PETE COOK MD May 13, 2025 13:10
[2025-05-13] MEDS: METOPROLOL TARTRATE 25 MG TAB PO SCH (22:00)
--- NOTE | 2025-05-13 22:35 | DVHPN2 ---
Consult Progress Note Subjective Patient reports: Feels better Other Systems: Patient was seen and evaluated in follow up. Patient still in atrial fibrillation on residential monitor, rate now in 90s- low 100's. Telemetry reviewed. Objective vital signs Vital Sign Date Time Temp Pulse Resp B/P (MAP) Pulse Ox O2 Delivery O2 Flow Rate FiO2 05/13/25 12:46 97.8 95 17 126/68 (87) 93 97.8 05/13/25 08:00 Room Air* 0 21 Total Intake and Output 05/12/25 05/12/25 05/13/25 15:00 23:00 07:00 Intake Total 250 ml Output Total 0 ml Balance 250 ml medications Current Medications Medications Dose Ordered Sig/Kasi Route Start Time Stop Time Status Last Admin Dose Admin Pantoprazole Sodium 40 mg DAILY@0600 PO 05/13/25 06:00 05/13/25 06:27 40 MG Levothyroxine Sodium 88 mcg QAM@0600 PO 05/13/25 06:00 05/13/25 06:27 88 MCG Atorvastatin Calcium 40 mg HS PO 05/12/25 22:00 05/12/25 23:38 40 MG Enoxaparin Sodium 80 mg Q12HR SC 05/12/25 22:00 05/13/25 10:30 80 MG Metoprolol Tartrate 50 mg BID PO 05/13/25 22:00 Examination: GENERAL:Normal, LUNGS:Normal, CVS:Abnormal (Atrial fibrillation), NEURO:Normal laboratory and microbiology Laboratory Tests 05/13/25 06:07 Test 05/13/25 06:07 Range/Units Serum Glucose 82 74-106 mg/dL Problem List/Assessment/Plan Problem List/Assessment/Plan Problem List Atrial fibrillation with rapid ventricular response (on Pradaxa). History of direct current cardioversion in 2022. Rule out structural heart disease. History of peripheral arterial disease status post left lower extremity revascularization. Hypertension. Dyslipidemia. Chronic kidney disease. Thyroid disease. Gout. History of tobacco use. Plan/Recommendation Continued all current supportive medical care. Patient has been seen by Sadia Salgado NP on my behalf, her and I discussed the plan with the patient. Transthoracic echocardiogram to evaluate cardiac function. [id number] VASc score: 6 points, HAS-BLED score: 1 point. Therapeutic Lovenox while inpatient, transition back to DOAC (Pradaxa) prior to discharge. Beta-candido for rate control; up titrate as tolerated. Avoid antiarrhythmic agent at this time given unknown duration of atrial fibrillation. Monitor and replete electrolytes as needed, keep potassium greater than four and magnesium greater than two. Continue lipid-lowering agent. Blood pressure control. Close cardiac surveillance. Additional plan as per the hospital course. Plan discussed with: Patient Date of Service: May 13, 2025 Billing Provider: LORIN KASPER MD Cardiology Common Codes: [id number] HOSP CARE([facility] LORIN KASPER MD May 13, 2025 13:42
[2025-05-14] VITALS (9 sets, daily range): BP systolic 112–141; BP diastolic 52–86; PULSE 66–142; RESP 15–18; TEMP 97.7–98.5; O2SAT 92–96
--- NOTE | 2025-05-14 00:45 | DVHSR ---
APPROVED REPORT EXAM: Two-dimensional and M-mode echocardiogram with Doppler and color Doppler. Blood Pressure: 124/76 mmHg INDICATION Atrial Fibrillation RISK FACTORS Height: 5'6", Weight: 174 DIMENSIONS LVDd 4.9 (3.8-5.7cm) LA (2D) 4.1 (1.9-4.0cm) Aortic Root 3.0 (2.0-3.7cm) LVDs 3.6 (2.5-4.0cm) LA (MM) (1.9-4.0cm) Aortic Cusp Exc 1.6 (1.5-2.0cm) EF (%) 45.0 (55-70%) Rt. Atrium 4.6 (1.9-4.0cm) Asc. Aorta cm IVSd 0.9 (0.7-1.1cm) RV (D) (1.8-2.4cm) PWd 1.0 (0.7-1.1cm) Mitral Valve Mitral Mitral Stenosis E wave 0.98m/s MV Mean GR. mmHg E/A ratio 0.0 2D MVA cm2 Aortic Valve Aortic Valve Aortic Stenosis V1 0.65m/s AO Mean GR. 3mmHg V2 1.12m/s AO Peak GR. 5mmHg LVOT Diameter 1.8 (1.8-2.4cm) Doppler YOEL 1.48cm2 Pulmonic Valve V2 0.89m/s Tricuspid Valve TR Velocity 2.66m/s RVSP 36mmHg Other Information Quality : Rhythm : Atrial Fibrillation Conclusion MILD LVH AND MILD LV DIASTOLIC DYSFUNCTION LV EF IS IN RANGE OF 40% MILD GLOBAL LV HYPOKINESIS MODERATELY DILATED RV ,RA AND LA MODERATE DEGREE RV HYPOKINESIS NORMAL VALVES NO EFFUSION MILD PULMONARY HYPERTENSION
--- NOTE | 2025-05-14 10:07 | ECG ---
[facility] Test Date: 2025-05-12 Test Time: 12:27:37 Pat Name: DAVONTE SALAZAR Department: ED Room: 0223T B Gender: F System Support Administrator: JASPREET : 1950 Requested By: CHANDU GAR Order Number: [id number] Reading MD: Cr Moreno Measurements Intervals [place] Rate: 124 P: 0 PA: 0 QRS: 103 QRSD: 138 T: -23 QT: 350 QTc: 503 Interpretive Statements Atrial fibrillation RBBB and LPFB Electronically Signed On 05-18-2025 8:29:19 PST by Cr Moreno Please click the below link to view image of tracing.
[2025-05-14 15:59] LABS: Hematocrit 35.9 % (36.0-46.0); Hemoglobin 12.2 g/dL (12.2-16.2); Mean Corpuscular Hemoglobin 31.5 pg (28.0-32.0); Mean Corpuscular Volume 92.9 fL (80.0-100.0); Nucleated Red Blood Cells % 0.1 %
--- NOTE | 2025-05-14 16:00 | DVHPN2 ---
Subjective HF improved Reviewed: H&P Changes from previous H/P or p: No Changes Objective Vitals Vital Signs Date Time Temp Pulse Resp B/P (MAP) Pulse Ox O2 Delivery O2 Flow Rate FiO2 05/14/25 13:00 98.2 66 18 112/81 (91) 96 98.2 05/14/25 08:05 Room Air* 0 21 Intake/Output Intake and Output 05/14/25 05:00 Intake Total 1525 ml Balance 1525 ml Intake Oral 1525 ml # Voids 6 # Bowel Movements 3 General Appearance: Alert, Oriented X3 HEENT: Atraumatic Cardiovascular: Regular rate, Normal S1, Normal S2 Abdomen: Normal bowel sounds Medications Current Medications Medications Dose Ordered Sig/Kasi Route Start Time Stop Time Status Last Admin Dose Admin Pantoprazole Sodium 40 mg DAILY@0600 PO 05/13/25 06:00 05/14/25 05:23 40 MG Levothyroxine Sodium 88 mcg QAM@0600 PO 05/13/25 06:00 05/14/25 05:23 88 MCG Atorvastatin Calcium 40 mg HS PO 05/12/25 22:00 05/13/25 22:13 40 MG Enoxaparin Sodium 80 mg Q12HR SC 05/12/25 22:00 05/14/25 07:51 80 MG Metoprolol Tartrate 50 mg BID PO 05/13/25 22:00 05/14/25 07:51 50 MG Laboratory Results Chemistry Test 05/14/25 15:40 Calcium Level Pending Urinalysis Test 05/12/25 13:58 Urine Color Colorless (Yellow) Urine Clarity Turbid (Clear) H Urine pH 6.0 (5.0-9.0) Urine Specific [place] 1.005 (1.001-1.035) Urine Protein Negative (Negative) Urine Ketones Negative (Negative) Urine Blood Negative /uL (Negative) Urine Nitrite Negative (Negative) Urine Bilirubin Negative (Negative) Urine Urobilinogen Normal mg/dL (Negative) Urine Leukocyte Esterase 3+ /uL (Negative) Urine RBC 4 /hpf (0 - 4) Urine Microscopic WBC 64 /HPF (0-5) H Urine Squamous Epithelial Cells Few /hpf (<5) Urine Bacteria Few /hpf (None Seen) H Urine Glucose Normal mg/dL (Normal) Microbiology Microbiology Date/Time Source Procedure Growth Status 05/12/25 13:58 Voided Urine Urine Culture - Preliminary Resulted Assessment/Plan Assessment/Plan # paroxysmal AFib CHADS-VASc score 4 Has bled score 2 Cardiology on board metoprolol increase since HR uncontrolled now 50mg BID lovenox # ?UTI -urine culture negative no further workup #hypertension -metoprolol -resume home meds GERD protonix hypothyroidism levothyroxine dyslipidemia atorvastatin Plan discussed with: Patient Date of Service: May 14, 2025 Billing Provider: PETE COOK MD Common Visit Codes: [id number] INP/OBS CARE(HIGH) PETE COOK MD May 14, 2025 16:00
[2025-05-14 16:05] LABS: Chloride 107 mmol/L (98-107); Potassium 4.7 mmol/L (3.5-5.1); Sodium 144 mmol/L (136-145)
[2025-05-14 16:06] LABS: Anion Gap 9 (5-15); Carbon Dioxide 28 mmol/L (20-31)
[2025-05-14 16:07] LABS: Calcium 9.6 mg/dL (8.7-10.4)
[2025-05-14 16:11] LABS: Glucose 98 mg/dL (74-106)
[2025-05-14 16:12] LABS: BUN/Creatinine Ratio 10.2 (10.0-20.0); Blood Urea Nitrogen 17 mg/dL (9-23)
--- NOTE | 2025-05-14 18:16 | DVHPN2 ---
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 Objective vital signs Vital Sign Date Time Temp Pulse Resp B/P (MAP) Pulse Ox O2 Delivery O2 Flow Rate FiO2 05/14/25 17:00 97.8 85 16 140/70 (93) 94 97.8 05/14/25 08:05 Room Air* 0 21 Total Intake and Output 05/13/25 05/13/25 05/14/25 15:00 23:00 07:00 Intake Total 1200 ml 325 ml Balance 1200 ml 325 ml medications Current Medications Medications Dose Ordered Sig/Kasi Route Start Time Stop Time Status Last Admin Dose Admin Pantoprazole Sodium 40 mg DAILY@0600 PO 05/13/25 06:00 05/14/25 05:23 40 MG Levothyroxine Sodium 88 mcg QAM@0600 PO 05/13/25 06:00 05/14/25 05:23 88 MCG Atorvastatin Calcium 40 mg HS PO 05/12/25 22:00 05/13/25 22:13 40 MG Enoxaparin Sodium 80 mg Q12HR SC 05/12/25 22:00 05/14/25 07:51 80 MG Metoprolol Tartrate 50 mg BID PO 05/13/25 22:00 05/14/25 07:51 50 MG Examination: GENERAL:Normal, LUNGS:Normal, CVS:Normal, NEURO:Normal laboratory and microbiology Laboratory Tests 05/14/25 15:40 Test 05/14/25 15:40 Range/Units Serum Glucose 98 74-106 mg/dL Problem List/Assessment/Plan Problem List/Assessment/Plan Atrial fibrillation with rapid ventricular response (on Pradaxa) History of direct current cardioversion in 2022 DeNovo compensated HFrEF, NYHA class II History of peripheral arterial disease status post left lower extremity revascularization Hypertension Dyslipidemia Chronic kidney disease Thyroid disease Gout History of tobacco use Plan/Recommendation (Dr. Matthews): * Transthoracic echocardiogram reveals EF 40% * Initiate guideline directed medical therapy for CHF with improved renal function (creatinine is trending up, GFR worse today) * [id number] VASc score: 6 points, HAS-BLED score: 1 point * Therapeutic Lovenox while inpatient, transition back to DOAC (Pradaxa) prior to discharge * Beta-candido for rate control; up titrate as tolerated * Avoid antiarrhythmic agent at this time given unknown duration of atrial fibrillation * Monitor and replete electrolytes as needed, keep potassium greater than four and magnesium greater than two * Continue lipid-lowering agent * Blood pressure control * Close cardiac surveillance Patient was seen and examined at bedside with . Given that the patient is still experiencing episodes of atrial fibrillation with rapid ventricular response on exertion, offered the patient a transesophageal echocardiogram with direct current cardioversion. At this time, the patient states that she does not want to undergo another cardioversion. 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 The patient was educated on the benefits of being in a normal sinus rhythm. Patient verbalized understanding and states that she would like to think about the decision to undergo a cardioversion, but at this time is refusing procedure. The patient was also educated on transthoracic echocardiogram findings with LVEF now at 40%. She reports a previous echocardiogram done within the [place] facility approximately two years ago shows an EF of 60%. The patient may benefit from eventual ischemic workup. At this time, the patient does not want any invasive cardiac procedures done at this facility and would like to follow up with her primary marine superintendent at [place]. There is no further inpatient cardiac workup indicated at this time per patient request. If the patient changes her mind and would like further cardiac workup at this facility, please reconsult. Thank you for allowing us to care for this patient. Please call with any questions or concerns. This medical document was created using an electronic medical record system with voice recognition software and computerized dictation system. Although this document has been carefully reviewed, there might still be some phonetic and typographical errors. Occasional wrong-word or ``sound-alike substitutions may have occurred due to the inherent limitations of voice recognition software. These areas are purely typographical due to imperfections of the software programs and do not reflect any compromise in the patient's medical care. Please read the chart carefully and recognize, using context, where these substitutions have occurred. Plan discussed with: Patient Date of Service: May 14, 2025 Billing Provider: ABI SCHAFER Common Visit Codes: [id number] INP/OBS CARE(HIGH) ABI SCHAFER May 14, 2025 18:16
--- NOTE | 2025-05-14 19:10 | DVHPN2 ---
Consult Progress Note Subjective Other Systems: Patient was seen and evaluated in follow up. Patient remains in atrial fibrillation now with rate in 90s on residential monitor Patient still experiencing palpitations when she walks to the restroom. 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 Telemetry reviewed. Objective vital signs Vital Sign Date Time Temp Pulse Resp B/P (MAP) Pulse Ox O2 Delivery O2 Flow Rate FiO2 05/14/25 17:00 97.8 85 16 140/70 (93) 94 97.8 05/14/25 08:05 Room Air* 0 21 Total Intake and Output 05/13/25 05/13/25 05/14/25 15:00 23:00 07:00 Intake Total 1200 ml 325 ml Balance 1200 ml 325 ml medications Current Medications Medications Dose Ordered Sig/Kasi Route Start Time Stop Time Status Last Admin Dose Admin Pantoprazole Sodium 40 mg DAILY@0600 PO 05/13/25 06:00 05/14/25 05:23 40 MG Levothyroxine Sodium 88 mcg QAM@0600 PO 05/13/25 06:00 05/14/25 05:23 88 MCG Atorvastatin Calcium 40 mg HS PO 05/12/25 22:00 05/13/25 22:13 40 MG Enoxaparin Sodium 80 mg Q12HR SC 05/12/25 22:00 05/14/25 07:51 80 MG Metoprolol Tartrate 50 mg BID PO 05/13/25 22:00 05/14/25 07:51 50 MG Examination: GENERAL:Normal, HEENT:Normal, NECK:Normal, LUNGS:Normal, CVS:Normal, NEURO:Normal laboratory and microbiology Laboratory Tests 05/14/25 15:40 Test 05/14/25 15:40 Range/Units Serum Glucose 98 74-106 mg/dL Problem List/Assessment/Plan Problem List/Assessment/Plan Problem List Atrial fibrillation with rapid ventricular response (on Pradaxa). History of direct current cardioversion in 2022. Rule out structural heart disease. History of peripheral arterial disease status post left lower extremity revascularization. Hypertension. Dyslipidemia. Chronic kidney disease. Thyroid disease. Gout. History of tobacco use. Plan/Recommendation Continued all current supportive medical care. Patient has been seen by Sadia Salgado NP on my behalf, her and I discussed the plan with the patient. Transthoracic echocardiogram reveals EF 40%. Initiate guideline directed medical therapy for CHF with improved renal function (creatinine is trending up, GFR worse today). [id number] VASc score: 6 points, HAS-BLED score: 1 point. Therapeutic Lovenox while inpatient, transition back to DOAC (Pradaxa) prior to discharge. Beta-candido for rate control; up titrate as tolerated. Avoid antiarrhythmic agent at this time given unknown duration of atrial fibrillation. Monitor and replete electrolytes as needed, keep potassium greater than four and magnesium greater than two. Continue lipid-lowering agent. Blood pressure control. Close cardiac surveillance. Given that the patient is still experiencing episodes of atrial fibrillation with rapid ventricular response on exertion, I offered the patient a transesophageal echocardiogram with direct current cardioversion. At this time, the patient states that she does not want to undergo another cardioversion. 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 The patient was educated on the benefits of being in a normal sinus rhythm. Patient verbalized understanding and states that she would like to think about the decision to undergo a cardioversion, but at this time is refusing procedure. The patient was also educated on transthoracic echocardiogram findings with LVEF now at 40%. She reports a previous echocardiogram done within the [place] facility approximately two years ago shows an EF of 60%. The patient may benefit from eventual ischemic workup. At this time, the patient does not want any invasive cardiac procedures done at this facility and would like to follow up with her primary master automotive glass technician at [place]. There is no further inpatient cardiac workup indicated at this time per patient request. If the patient changes her mind and would like further cardiac workup at this facility, please reconsult. Additional plan as per the hospital course. Plan discussed with: Patient Date of Service: May 14, 2025 Billing Provider: LORIN KASPER MD Cardiology Common Codes: [id number]-[facility]NORRMAY [facility] LORIN KASPER MD May 14, 2025 18:20
[2025-05-15] VITALS (9 sets, daily range): BP systolic 106–128; BP diastolic 59–86; PULSE 94–112; RESP 16–19; TEMP 96.9–98; O2SAT 94–97
--- NOTE | 2025-05-15 14:29 | DVHPN2 ---
Consult Progress Note Date Seen: May 15, 2025 Subjective Review of Systems: CVS:Normal, RESPIRATORY:Abnormal, NEURO:Normal Other Systems: C/o MONTEMAYOR Objective vital signs Vital Sign Date Time Temp Pulse Resp B/P (MAP) Pulse Ox O2 Delivery O2 Flow Rate FiO2 05/15/25 12:37 97.6 95 19 123/75 (91) 95 97.6 05/15/25 10:00 Room Air* 0 21 Total Intake and Output 05/14/25 05/14/25 05/15/25 15:00 23:00 07:00 Intake Total 700 ml 800 ml Balance 700 ml 800 ml medications Current Medications Medications Dose Ordered Sig/Kasi Route Start Time Stop Time Status Last Admin Dose Admin Pantoprazole Sodium 40 mg DAILY@0600 PO 05/13/25 06:00 05/15/25 06:00 40 MG Levothyroxine Sodium 88 mcg QAM@0600 PO 05/13/25 06:00 05/15/25 06:00 88 MCG Atorvastatin Calcium 40 mg HS PO 05/12/25 22:00 05/14/25 20:58 40 MG Enoxaparin Sodium 80 mg Q12HR SC 05/12/25 22:00 05/15/25 09:54 80 MG Metoprolol Tartrate 50 mg BID PO 05/13/25 22:00 05/15/25 09:56 50 MG Examination: LUNGS:Normal, CVS:Abnormal (A-fib with RVR up to 140s bpm), NEURO:Normal laboratory and microbiology Laboratory Tests 05/14/25 15:40 Test 05/14/25 15:40 Range/Units Serum Glucose 98 74-106 mg/dL Problem List/Assessment/Plan Problem List/Assessment/Plan DeNovo decompensated HFrEF, NYHA class III Atrial fibrillation with rapid ventricular response (on Pradaxa), uncontrolled rate History of direct current cardioversion in 2022 Peripheral arterial disease status post left lower extremity revascularization Hypertension Dyslipidemia Chronic kidney disease Thyroid disease History of tobacco use Gout Plan/Recommendation (Dr. Matthews) * Transthoracic echocardiogram reveals EF 40% * Guideline directed medical therapy for CHF as renal function permits * The patient can benefit from outpatient ischemic work-up * Initiate preload and afterload reduction * Strict I&Os, daily weight, fluid restrictions * Therapeutic Lovenox while inpatient, transition back to DOAC (Pradaxa) prior to discharge * [id number] VASc score: 6 points, HAS-BLED score: 1 point * Rate control, load on digoxin therapy in addition to beta-candido * Avoid antiarrhythmic agents. unknown duration of atrial fibrillation * Monitor and replete electrolytes as needed, K>4 and Mg>2 * Lipid-lowering agent * Close cardiac surveillance We will attempt rate control with digoxin therapy in addition to beta-candido, if unsuccessful, the patient will be scheduled for a DCCV at first available. Thank you for allowing us to care for this patient. Please call with any questions or concerns. This medical document was created using an electronic medical record system with voice recognition software and computerized dictation system. Although this document has been carefully reviewed, there might still be some phonetic and typographical errors. Occasional wrong-word or ``sound-alike substitutions may have occurred due to the inherent limitations of voice recognition software. These areas are purely typographical due to imperfections of the software programs and do not reflect any compromise in the patient's medical care. Please read the chart carefully and recognize, using context, where these substitutions have occurred. Plan discussed with: Patient, Other Date of Service: May 15, 2025 Billing Provider: WENDI HAYS Cardiology Common Codes: [id number] HOSP CARE(High WENDI HAYS May 15, 2025 14:29
--- NOTE | 2025-05-15 15:08 | DVHPN2 ---
Subjective HF improved Reviewed: H&P Changes from previous H/P or p: No Changes Objective Vitals Vital Signs Date Time Temp Pulse Resp B/P (MAP) Pulse Ox O2 Delivery O2 Flow Rate FiO2 05/15/25 12:37 97.6 95 19 123/75 (91) 95 97.6 05/15/25 10:00 Room Air* 0 21 Intake/Output Intake and Output 05/15/25 07:00 Intake Total 1500 ml Balance 1500 ml Intake Oral 1500 ml # Voids 7 # Bowel Movements 2 General Appearance: Alert, Oriented X3 HEENT: Atraumatic Cardiovascular: Regular rate, Normal S1, Normal S2 Abdomen: Normal bowel sounds Medications Current Medications Medications Dose Ordered Sig/Kasi Route Start Time Stop Time Status Last Admin Dose Admin Pantoprazole Sodium 40 mg DAILY@0600 PO 05/13/25 06:00 05/15/25 06:00 40 MG Levothyroxine Sodium 88 mcg QAM@0600 PO 05/13/25 06:00 05/15/25 06:00 88 MCG Atorvastatin Calcium 40 mg HS PO 05/12/25 22:00 05/14/25 20:58 40 MG Enoxaparin Sodium 80 mg Q12HR SC 05/12/25 22:00 05/15/25 09:54 80 MG Metoprolol Tartrate 50 mg BID PO 05/13/25 22:00 05/15/25 09:56 50 MG Furosemide 20 mg DAILY IV 05/16/25 10:00 Losartan Potassium 25 mg DAILY PO 05/16/25 10:00 Empaglifozin 10 mg DAILY PO 05/16/25 10:00 Laboratory Results Laboratory Tests 05/14/25 15:40 Chemistry Test 05/14/25 15:40 Calcium Level 9.6 mg/dL (8.7-10.4) Urinalysis Test 05/12/25 13:58 Urine Color Colorless (Yellow) Urine Clarity Turbid (Clear) H Urine pH 6.0 (5.0-9.0) Urine Specific [place] 1.005 (1.001-1.035) Urine Protein Negative (Negative) Urine Ketones Negative (Negative) Urine Blood Negative /uL (Negative) Urine Nitrite Negative (Negative) Urine Bilirubin Negative (Negative) Urine Urobilinogen Normal mg/dL (Negative) Urine Leukocyte Esterase 3+ /uL (Negative) Urine RBC 4 /hpf (0 - 4) Urine Microscopic WBC 64 /HPF (0-5) H Urine Squamous Epithelial Cells Few /hpf (<5) Urine Bacteria Few /hpf (None Seen) H Urine Glucose Normal mg/dL (Normal) Microbiology Microbiology Date/Time Source Procedure Growth Status 05/12/25 13:58 Voided Urine Urine Culture - Final Complete Assessment/Plan Assessment/Plan # paroxysmal AFib CHADS-VASc score 4 Has bled score 2 Cardiology on board metoprolol increase since HR uncontrolled now 50mg BID Started digoxin per cardiology if no improvement plan for electrical cardioversion lovenox # ?UTI -urine culture negative no further workup #hypertension -metoprolol -resume home meds GERD protonix hypothyroidism levothyroxine dyslipidemia atorvastatin Plan discussed with: Patient Date of Service: May 15, 2025 Billing Provider: PETE COOK MD Common Visit Codes: [id number] INP/OBS CARE(HIGH) PETE COOK MD May 15, 2025 15:08
[2025-05-15] MEDS: MAGNESIUM SULFATE 1GM/100ML 100 ML IV ONE (15:44)
[2025-05-15] MEDS: DIGOXIN (250MCG/ML) 2 ML AMPULE IV ONE (15:47)
[2025-05-15] MEDS: FUROSEMIDE 20 MG/2 ML VIAL IV ONE (15:47)
--- NOTE | 2025-05-15 23:58 | DVHPN2 ---
Consult Progress Note Date Seen: May 15, 2025 Subjective Other Systems: Patient was seen and evaluated in follow up. The patient is c/o MONTEMAYOR. Patient is on room air. She is afebrile. Telemetry reviewed. Objective vital signs Vital Sign Date Time Temp Pulse Resp B/P (MAP) Pulse Ox O2 Delivery O2 Flow Rate FiO2 05/15/25 21:45 92 120/70 05/15/25 12:37 97.6 19 95 97.6 05/15/25 10:00 Room Air* 0 21 Total Intake and Output 05/14/25 05/14/25 05/15/25 15:00 23:00 07:00 Intake Total 700 ml 800 ml Balance 700 ml 800 ml medications Current Medications Medications Dose Ordered Sig/Kasi Route Start Time Stop Time Status Last Admin Dose Admin Pantoprazole Sodium 40 mg DAILY@0600 PO 05/13/25 06:00 05/15/25 06:00 40 MG Levothyroxine Sodium 88 mcg QAM@0600 PO 05/13/25 06:00 05/15/25 06:00 88 MCG Atorvastatin Calcium 40 mg HS PO 05/12/25 22:00 05/15/25 21:44 40 MG Enoxaparin Sodium 80 mg Q12HR SC 05/12/25 22:00 05/15/25 21:44 80 MG Metoprolol Tartrate 50 mg BID PO 05/13/25 22:00 05/15/25 21:45 50 MG Furosemide 20 mg DAILY IV 05/16/25 10:00 Losartan Potassium 25 mg DAILY PO 05/16/25 10:00 Empaglifozin 10 mg DAILY PO 05/16/25 10:00 Examination: GENERAL:Normal, LUNGS:Normal, CVS:Abnormal (A-fib with RVR up to 140s bpm), ABDOMEN:Normal, SKIN:Normal, NEURO:Normal laboratory and microbiology Laboratory Tests 05/14/25 15:40 Test 05/14/25 15:40 Range/Units Serum Glucose 98 74-106 mg/dL Problem List/Assessment/Plan Problem List/Assessment/Plan Problem List Atrial fibrillation with rapid ventricular response (on Pradaxa). History of direct current cardioversion in 2022. Rule out structural heart disease. History of peripheral arterial disease status post left lower extremity revascularization. Hypertension. Dyslipidemia. Chronic kidney disease. Thyroid disease. Gout. History of tobacco use. Plan/Recommendation Continued all current supportive medical care. Patient has been seen by Li Baeza NP on my behalf, her and I discussed the plan with the patient. We will attempt rate control with digoxin therapy in addition to beta-candido, if unsuccessful, the patient will be scheduled for a DCCV at first available. Transthoracic echocardiogram reveals EF 40%. Guideline directed medical therapy for CHF as renal function permits. The patient can benefit from outpatient ischemic work-up. Initiate preload and afterload reduction. Strict I&Os, daily weight, fluid restrictions. Therapeutic Lovenox while inpatient, transition back to DOAC (Pradaxa) prior to discharge. [id number] VASc score: 6 points, HAS-BLED score: 1 point. Rate control, load on digoxin therapy in addition to beta-candido. Avoid antiarrhythmic agents. unknown duration of atrial fibrillation. Monitor and replete electrolytes as needed, K>4 and Mg>2. Lipid-lowering agent. Close cardiac surveillance. Additional plan as per the hospital course. Plan discussed with: Patient Date of Service: May 15, 2025 Billing Provider: LORIN KASPER MD Cardiology Common Codes: [id number] LORIN KASPER MD May 15, 2025 23:58
[2025-05-16 01:00] VITALS: BP 115/67; PULSE 95; RESP 17; TEMP 97.9; O2SAT 97
[2025-05-16 05:00] VITALS: BP 101/71; PULSE 88; RESP 16; TEMP 98; O2SAT 95
--- NOTE | 2025-05-16 05:37 | DVH ---
CHEST RADIOGRAPH INDICATION: CHF TECHNIQUE: Single frontal view of the chest was obtained COMPARISON: XY CHEST PORTABLE on DOS: 05/12/25 FINDINGS: Lines and Tubes: None Lungs: No focal consolidation. Pleura: No effusion. No pneumothorax. Cardiomediastinal contours: Unremarkable Bones: No acute osseous abnormality. IMPRESSION: 1. No acute cardiopulmonary disease.
[2025-05-16 07:09] LABS: Hematocrit 37.1 % (36.0-46.0); Hemoglobin 12.6 g/dL (12.2-16.2); Mean Corpuscular Hemoglobin 31.2 pg (28.0-32.0); Mean Corpuscular Volume 92.2 fL (80.0-100.0); Nucleated Red Blood Cells % 0.3 %
[2025-05-16 07:22] LABS: Alanine Aminotransferase 11 U/L (7-40); Alkaline Phosphatase 107 U/L (46-116); Anion Gap 12 (5-15); Calcium 9.4 mg/dL (8.7-10.4); Carbon Dioxide 24 mmol/L (20-31); Chloride 107 mmol/L (98-107); Glucose 90 mg/dL (74-106); Magnesium 2.3 mg/dL (1.6-2.6); Potassium 4.2 mmol/L (3.5-5.1); Sodium 143 mmol/L (136-145)
[2025-05-16 07:23] LABS: Albumin 4.2 g/dL (3.2-4.8); BUN/Creatinine Ratio 14.8 (10.0-20.0); Bilirubin, Total 0.8 mg/dL (0.2-1.0); Blood Urea Nitrogen 21 mg/dL (9-23); Total Protein 6.7 g/dL (5.7-8.2)
[2025-05-16 08:00] VITALS: PULSE 93
[2025-05-16 08:05] VITALS: PULSE 98
--- NOTE | 2025-05-16 09:04 | DVHPN2 ---
Subjective HF improved Reviewed: H&P Changes from previous H/P or p: No Changes Objective Vitals Vital Signs Date Time Temp Pulse Resp B/P (MAP) Pulse Ox O2 Delivery O2 Flow Rate FiO2 05/16/25 08:05 98 Room Air* 0 21 05/16/25 05:00 98.0 16 101/71 (81) 95 98.0 Intake/Output Intake and Output 05/16/25 07:00 Intake Total 600 ml Output Total 2300 ml Balance -1700 ml Intake Oral 500 ml IV Total 100 ml Output Urine Total 2300 ml # Bowel Movements 1 General Appearance: Alert, Oriented X3 HEENT: Atraumatic Cardiovascular: Regular rate, Normal S1, Normal S2 Abdomen: Normal bowel sounds Medications Current Medications Medications Dose Ordered Sig/Kasi Route Start Time Stop Time Status Last Admin Dose Admin Pantoprazole Sodium 40 mg DAILY@0600 PO 05/13/25 06:00 05/16/25 05:17 40 MG Levothyroxine Sodium 88 mcg QAM@0600 PO 05/13/25 06:00 05/16/25 05:17 88 MCG Atorvastatin Calcium 40 mg HS PO 05/12/25 22:00 05/15/25 21:44 40 MG Enoxaparin Sodium 80 mg Q12HR SC 05/12/25 22:00 05/15/25 21:44 80 MG Metoprolol Tartrate 50 mg BID PO 05/13/25 22:00 05/15/25 21:45 50 MG Furosemide 20 mg DAILY IV 05/16/25 10:00 Losartan Potassium 25 mg DAILY PO 05/16/25 10:00 Empaglifozin 10 mg DAILY PO 05/16/25 10:00 Laboratory Results Laboratory Tests 05/16/25 05:21 Chemistry Test 05/16/25 05:21 Albumin 4.2 g/dL (3.2-4.8) Calcium Level 9.4 mg/dL (8.7-10.4) Magnesium Level 2.3 mg/dL (1.6-2.6) Total Protein 6.7 g/dL (5.7-8.2) LFT Test 05/16/25 05:21 Alanine Aminotransferase (ALT) 11 U/L (7-40) Alkaline Phosphatase 107 U/L (46-116) Aspartate Amino Transferase (AST) 22 U/L (13-40) Total Bilirubin 0.8 mg/dL (0.2-1.0) Urinalysis Test 05/12/25 13:58 Urine Color Colorless (Yellow) Urine Clarity Turbid (Clear) H Urine pH 6.0 (5.0-9.0) Urine Specific [place] 1.005 (1.001-1.035) Urine Protein Negative (Negative) Urine Ketones Negative (Negative) Urine Blood Negative /uL (Negative) Urine Nitrite Negative (Negative) Urine Bilirubin Negative (Negative) Urine Urobilinogen Normal mg/dL (Negative) Urine Leukocyte Esterase 3+ /uL (Negative) Urine RBC 4 /hpf (0 - 4) Urine Microscopic WBC 64 /HPF (0-5) H Urine Squamous Epithelial Cells Few /hpf (<5) Urine Bacteria Few /hpf (None Seen) H Urine Glucose Normal mg/dL (Normal) Microbiology Microbiology Date/Time Source Procedure Growth Status 05/12/25 13:58 Voided Urine Urine Culture - Final Complete Assessment/Plan Assessment/Plan # paroxysmal AFib CHADS-VASc score 4 Has bled score 2 Cardiology on board metoprolol increase since HR uncontrolled now 50mg BID Started digoxin per cardiology if no improvement plan for electrical cardioversion lovenox # ?UTI -urine culture negative no further workup #hypertension -metoprolol -resume home meds GERD protonix hypothyroidism levothyroxine dyslipidemia atorvastatin Dispo: Pending improvement of HR, cardiology might plan for electrical cardioversion Plan discussed with: Patient Date of Service: May 16, 2025 Billing Provider: PETE COOK MD Common Visit Codes: [id number] INP/OBS CARE(HIGH) PETE COOK MD May 16, 2025 09:04
[2025-05-16] MEDS: EMPAGLIFLOZIN 10 MG TAB PO SCH (09:27)
[2025-05-16] MEDS: LOSARTAN POTASSIUM 25 MG TAB PO SCH (09:27)
[2025-05-16] MEDS: FUROSEMIDE 20 MG/2 ML VIAL IV SCH (09:30)
--- NOTE | 2025-05-16 10:23 | DVHPN2 ---
Consult Progress Note Date Seen: May 16, 2025 Subjective Review of Systems: CVS:Normal, RESPIRATORY:Normal, NEURO:Normal Other Systems: Denies any cardiac symptoms Objective vital signs Vital Sign Date Time Temp Pulse Resp B/P (MAP) Pulse Ox O2 Delivery O2 Flow Rate FiO2 05/16/25 09:30 140/56 05/16/25 09:28 102 05/16/25 08:05 Room Air* 0 21 05/16/25 05:00 98.0 16 95 98.0 Total Intake and Output 05/15/25 05/15/25 05/16/25 15:00 23:00 07:00 Intake Total 500 ml 100 ml Output Total 600 ml 1700 ml Balance -100 ml -1600 ml medications Current Medications Medications Dose Ordered Sig/Kasi Route Start Time Stop Time Status Last Admin Dose Admin Pantoprazole Sodium 40 mg DAILY@0600 PO 05/13/25 06:00 05/16/25 05:17 40 MG Levothyroxine Sodium 88 mcg QAM@0600 PO 05/13/25 06:00 05/16/25 05:17 88 MCG Atorvastatin Calcium 40 mg HS PO 05/12/25 22:00 05/15/25 21:44 40 MG Enoxaparin Sodium 80 mg Q12HR SC 05/12/25 22:00 05/16/25 09:29 80 MG Metoprolol Tartrate 50 mg BID PO 05/13/25 22:00 05/16/25 09:28 50 MG Furosemide 20 mg DAILY IV 05/16/25 10:00 05/16/25 09:30 20 MG Losartan Potassium 25 mg DAILY PO 05/16/25 10:00 05/16/25 09:27 25 MG Empaglifozin 10 mg DAILY PO 05/16/25 10:00 05/16/25 09:27 10 MG Examination: LUNGS:Normal, CVS:Abnormal (A-fib with intermittent RVR up to 150s bpm), NEURO:Normal laboratory and microbiology Laboratory Tests 05/16/25 05:21 Test 05/16/25 05:21 Range/Units Serum Glucose 90 74-106 mg/dL Problem List/Assessment/Plan Problem List/Assessment/Plan DeNovo decompensated HFrEF, NYHA class III Atrial fibrillation with rapid ventricular response (on Pradaxa), uncontrolled rate History of direct current cardioversion in 2022 Peripheral arterial disease status post left lower extremity revascularization Hypertension Dyslipidemia Chronic kidney disease Thyroid disease History of tobacco use Gout Plan/Recommendation (Dr. Matthews) * Transthoracic echocardiogram reveals EF 40% * Guideline directed medical therapy for CHF as renal function permits * The patient can benefit from outpatient ischemic work-up * Continue preload and afterload reduction * Strict I&Os, daily weight, fluid restrictions * Therapeutic Lovenox while inpatient, transition back to DOAC (Pradaxa) prior to discharge * [id number] VASc score: 6 points, HAS-BLED score: 1 point * Rate control, continue beta-candido * Avoid antiarrhythmic agents, unknown duration of atrial fibrillation * Monitor and replete electrolytes as needed, K>4 and Mg>2 * Lipid-lowering agent * Close cardiac surveillance Continues with intermittent A-fib with RVR events, scheduled for a ELDER & DCCV with Dr. Matthews on 05/17/2025. All risks and benefits of the procedures were discussed in full detail with the patient agreeing for interventions. All questions answered. Thank you for allowing us to care for this patient. Please call with any questions or concerns. This medical document was created using an electronic medical record system with voice recognition software and computerized dictation system. Although this document has been carefully reviewed, there might still be some phonetic and typographical errors. Occasional wrong-word or ``sound-alike substitutions may have occurred due to the inherent limitations of voice recognition software. These areas are purely typographical due to imperfections of the software programs and do not reflect any compromise in the patient's medical care. Please read the chart carefully and recognize, using context, where these substitutions have occurred. Plan discussed with: Patient, Other Date of Service: May 16, 2025 Billing Provider: WENDI HAYS Cardiology Common Codes: [id number] HOSP CARE([facility] WENDI HAYSP May 16, 2025 10:22
[2025-05-16] MEDS: SENNA 8.6 MG TAB PO ONE (14:18)
[2025-05-16 20:00] VITALS: PULSE 116; PULSE 93; RESP 18; O2SAT 99
[2025-05-16 21:00] VITALS: BP 116/73; PULSE 93; RESP 18; TEMP 97.9; O2SAT 99
--- NOTE | 2025-05-16 23:40 | DVHPN2 ---
Consult Progress Note Date Seen: May 16, 2025 Subjective Review of Systems: CVS:Normal, RESPIRATORY:Normal, NEURO:Normal Other Systems: Patient was seen and evaluated in follow up. Denies any cardiac symptoms. 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 Chest x-ray showed NAD. Telemetry reviewed. Objective vital signs Vital Sign Date Time Temp Pulse Resp B/P (MAP) Pulse Ox O2 Delivery O2 Flow Rate FiO2 05/16/25 09:30 140/56 05/16/25 09:28 102 05/16/25 08:05 Room Air* 0 21 05/16/25 05:00 98.0 16 95 98.0 Total Intake and Output 05/15/25 05/15/25 05/16/25 15:00 23:00 07:00 Intake Total 500 ml 100 ml Output Total 600 ml 1700 ml Balance -100 ml -1600 ml medications Current Medications Medications Dose Ordered Sig/Kasi Route Start Time Stop Time Status Last Admin Dose Admin Pantoprazole Sodium 40 mg DAILY@0600 PO 05/13/25 06:00 05/16/25 05:17 40 MG Levothyroxine Sodium 88 mcg QAM@0600 PO 05/13/25 06:00 05/16/25 05:17 88 MCG Atorvastatin Calcium 40 mg HS PO 05/12/25 22:00 05/15/25 21:44 40 MG Enoxaparin Sodium 80 mg Q12HR SC 05/12/25 22:00 05/16/25 09:29 80 MG Metoprolol Tartrate 50 mg BID PO 05/13/25 22:00 05/16/25 09:28 50 MG Furosemide 20 mg DAILY IV 05/16/25 10:00 05/16/25 09:30 20 MG Losartan Potassium 25 mg DAILY PO 05/16/25 10:00 05/16/25 09:27 25 MG Empaglifozin 10 mg DAILY PO 05/16/25 10:00 05/16/25 09:27 10 MG Examination: GENERAL:Normal, HEENT:Normal, NECK:Normal, LUNGS:Normal, CVS:Abnormal (A-fib with intermittent RVR up to 150s bpm), NEURO:Normal laboratory and microbiology Laboratory Tests 05/16/25 05:21 Test 05/16/25 05:21 Range/Units Serum Glucose 90 74-106 mg/dL Problem List/Assessment/Plan Problem List/Assessment/Plan Problem List DeNovo decompensated HFrEF, NYHA class III. Atrial fibrillation with rapid ventricular response (on Pradaxa), uncontrolled rate. History of direct current cardioversion in 2022. Peripheral arterial disease status post left lower extremity revascularization. Hypertension. Dyslipidemia. Chronic kidney disease. Thyroid disease. History of tobacco use. Gout. Plan/Recommendation Continued all current supportive medical care. Patient has been seen by Li Baeza NP on my behalf, her and I discussed the plan with the patient. Transthoracic echocardiogram reveals EF 40%. Guideline directed medical therapy for CHF as renal function permits. The patient can benefit from outpatient ischemic work-up. Continue preload and afterload reduction. Strict I&Os, daily weight, fluid restrictions. Therapeutic Lovenox while inpatient, transition back to DOAC (Pradaxa) prior to discharge. [id number] VASc score: 6 points, HAS-BLED score: 1 point. Rate control, continue beta-candido. Avoid antiarrhythmic agents, unknown duration of atrial fibrillation. Monitor and replete electrolytes as needed, K>4 and Mg>2. Lipid-lowering agent. Close cardiac surveillance. Continues with intermittent A-fib with RVR events, scheduled for a ELDER & DCCV with me on 05/17/2025. All risks and benefits of the procedures were discussed in full detail with the patient agreeing for interventions. All questions answered. Additional plan as per the hospital course. Plan discussed with: Patient Date of Service: May 16, 2025 Billing Provider: LORIN KASPER MD Cardiology Common Codes: [id number] [facility] LORIN KASPER MD May 16, 2025 13:36
[2025-05-17] VITALS (14 sets, daily range): BP systolic 103–159; BP diastolic 44–69; PULSE 62–95; RESP 12–18; TEMP 97.6–98.4; O2SAT 69–98
[2025-05-17 03:01] LABS: Hematocrit 38.1 % (36.0-46.0); Hemoglobin 12.6 g/dL (12.2-16.2); Mean Corpuscular Hemoglobin 30.8 pg (28.0-32.0); Mean Corpuscular Volume 92.9 fL (80.0-100.0); Nucleated Red Blood Cells % 0.1 %
[2025-05-17 03:23] LABS: Chloride 104 mmol/L (98-107); Potassium 4.7 mmol/L (3.5-5.1); Sodium 144 mmol/L (136-145)
[2025-05-17 03:24] LABS: Anion Gap 11 (5-15); Carbon Dioxide 29 mmol/L (20-31)
[2025-05-17 03:25] LABS: Calcium 9.7 mg/dL (8.7-10.4)
[2025-05-17 03:29] LABS: Glucose 96 mg/dL (74-106)
[2025-05-17 03:30] LABS: BUN/Creatinine Ratio 17.7 (10.0-20.0); Blood Urea Nitrogen 31 mg/dL (9-23); Magnesium 2.3 mg/dL (1.6-2.6)
--- NOTE | 2025-05-17 09:26 | DVHOP ---
DATE OF SERVICE: 05/17/2025 TECHNIQUE PERFORMED: Transesophageal echocardiogram. INDICATIONS: DESCRIPTION OF PROCEDURE: the risks and benefits were discussed and presumably going to CAT lab after NPO in a standard manner. We have given IV Versed and fentanyl and the patient was given lidocaine viscous. was placed and transverse was passed and we were able to open the left ventricle and right ventricle study completed. Bubble study was done. IMPRESSION: ? All cardiac chambers are dilated. ? Global hypokinesis of all cardiac chambers. ? Left ventricular ejection fraction in the range of only 20%. ? Dilated right ventricle also hypokinesis. Remarkably dilated left and right No thrombus. +1 SMOK noted in the laboratory. Normal mitral tricuspid pulmonary aortic valve. There is no pericardial effusion. CONCLUSIONS: ? 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 ? +1 SMOK noted in the left atrium. ? Normal volume. ? No pericardial effusion. The study consistent with end-stage dilated cardiomyopathy with ejection fraction in the range of 20%. MD MAX Vines TID: [id number] RECEIPT: [id number] MTDObie
--- NOTE | 2025-05-17 09:33 | DVHOP ---
DATE OF SURGERY: 05/17/2025 TECHNIQUE PERFORMED: * Electrical cardioversion. * Management of conscious sedation. ASSISTANTS: Assisted by our staff over here is Renee. INDICATION FOR PROCEDURE: Atrial fibrillation, did not convert with medicine. DESCRIPTION OF PROCEDURE: The risks and benefits discussed, kept n.p.o. The patient received Versed total of 3 mg, fentanyl total of 200 mcg. Once the sedation was done, electrical pads had been attached to the electrical cardioversion machine, put on synchronous mode, and shock was given after giving her the complete conscious sedation. After we did the electrical cardioversion, the patient converted to sinus rhythm. CONCLUSION: Successful electrical cardioversion back to sinus rhythm. PLAN OF ACTION: Advised to continue the current regimen, beta-candido, amiodarone, and follow up with her primary care doctor. She will need a long-term medicine like Xarelto or Eliquis. She has got low ejection fraction, so she may qualify in the future for the implantable cardioverter-defibrillator. Tiny Matthews MD [facility] [place] TID: [id number] RECEIPT: [id number]
--- NOTE | 2025-05-17 10:38 | DVHPN2 ---
Subjective The patient seen and examined at bedside. Just come back from the electrical cardioversion. The patient denies chest pain. On 1 L of oxygen. Reviewed: Care Plan, H&P, Labs, Medications, Previous Orders, Radiology Changes from previous H/P or p: No Changes Objective Vitals Vital Signs Date Time Temp Pulse Resp B/P (MAP) Pulse Ox O2 Delivery O2 Flow Rate FiO2 05/17/25 09:25 87 12 119/44 (69) 98 05/17/25 09:24 98.4 98.4 05/16/25 20:00 Room Air* 0 21 Intake/Output Intake and Output 05/17/25 07:00 Intake Total 1000 ml Output Total 1500 ml Balance -500 ml Intake Oral 1000 ml Output Urine Total 1500 ml General Appearance: Alert, Oriented X3, Cooperative, No acute distress HEENT: Atraumatic, PERRLA, EOMI, Mucous membr. moist/pink Neck: Supple Lungs: Clear to auscultation, Normal air movement Cardiovascular: Regular rate, Normal S1, Normal S2, No murmurs, Gallops, Rubs Abdomen: Normal bowel sounds Neuro: Cranial nerves 3-12 NL Psych/Mental Status: Mental status NL Medications Current Medications Medications Dose Ordered Sig/Kasi Route Start Time Stop Time Status Last Admin Dose Admin Pantoprazole Sodium 40 mg DAILY@0600 PO 05/13/25 06:00 05/17/25 05:30 40 MG Levothyroxine Sodium 88 mcg QAM@0600 PO 05/13/25 06:00 05/17/25 05:30 88 MCG Atorvastatin Calcium 40 mg HS PO 05/12/25 22:00 05/16/25 22:29 40 MG Enoxaparin Sodium 80 mg Q12HR SC 05/12/25 22:00 05/16/25 22:23 80 MG Metoprolol Tartrate 50 mg BID PO 05/13/25 22:00 05/16/25 22:23 50 MG Furosemide 20 mg DAILY IV 05/16/25 10:00 05/16/25 09:30 20 MG Losartan Potassium 25 mg DAILY PO 05/16/25 10:00 05/16/25 09:27 25 MG Empaglifozin 10 mg DAILY PO 05/16/25 10:00 05/16/25 09:27 10 MG Laboratory Results Laboratory Tests 05/17/25 02:20 Chemistry Test 05/17/25 02:20 Calcium Level 9.7 mg/dL (8.7-10.4) Magnesium Level 2.3 mg/dL (1.6-2.6) Urinalysis Test 05/12/25 13:58 Urine Color Colorless (Yellow) Urine Clarity Turbid (Clear) H Urine pH 6.0 (5.0-9.0) Urine Specific [place] 1.005 (1.001-1.035) Urine Protein Negative (Negative) Urine Ketones Negative (Negative) Urine Blood Negative /uL (Negative) Urine Nitrite Negative (Negative) Urine Bilirubin Negative (Negative) Urine Urobilinogen Normal mg/dL (Negative) Urine Leukocyte Esterase 3+ /uL (Negative) Urine RBC 4 /hpf (0 - 4) Urine Microscopic WBC 64 /HPF (0-5) H Urine Squamous Epithelial Cells Few /hpf (<5) Urine Bacteria Few /hpf (None Seen) H Urine Glucose Normal mg/dL (Normal) Microbiology Microbiology Date/Time Source Procedure Growth Status 05/12/25 13:58 Voided Urine Urine Culture - Final Complete Labs and/or images reviewed: Labs reviewed by me Assessment/Plan Assessment/Plan # paroxysmal AFib CHADS-VASc score 4 Has bled score 2 Cardiology on board metoprolol increase since HR uncontrolled now 50mg BID Started digoxin per cardiology electrical cardioversion today lovenox # ?UTI -urine culture negative no further workup #hypertension -metoprolol -resume home meds GERD protonix hypothyroidism levothyroxine dyslipidemia atorvastatin Discharge planing . Plan discussed with: Patient Date of Service: May 17, 2025 Billing Provider: THALIA OWUSU MD Common Visit Codes: [id number] INP/OBS CARE(HIGH) THALIA OWUSU MD May 17, 2025 10:38
[2025-05-18 01:00] VITALS: BP 103/52; PULSE 61; RESP 17; TEMP 98; O2SAT 92
--- NOTE | 2025-05-18 04:28 | DVHPN2 ---
Progress Note - Dictate Date Seen: May 17, 2025 Medical Necessity Reason Pt with a Central, PICC or Fol: No Subjective Patient was seen and evaluated in follow up. Transesophageal echocardiogram is consistent with end-stage dilated cardiomyopathy, ejection fraction only 20%.+1 SMOK noted in the left atrium. Normal volume. Patient underwent successful electrical cardioversion, patient is back to sinus rhythm I advised to continue the current regimen, beta-candido, amiodarone, and follow up with her primary care doctor. She will need a long-term medicine like Xarelto or Eliquis. She has got low ejection fraction, so she may qualify in the future for the implantable cardioverter-defibrillator. Telemetry reviewed. vital signs Vital Sign Date Time Temp Pulse Resp B/P (MAP) Pulse Ox O2 Delivery O2 Flow Rate FiO2 05/17/25 16:38 98.1 84 18 143/65 (91) 90 98.1 05/17/25 08:00 Room Air* 0 21 Total Intake and Output 05/16/25 05/16/25 05/17/25 15:00 23:00 07:00 Intake Total 720 ml 280 ml Output Total 1200 ml 300 ml Balance -480 ml -20 ml medications Current Medications Medications Dose Ordered Sig/Kasi Route Start Time Stop Time Status Last Admin Dose Admin Pantoprazole Sodium 40 mg DAILY@0600 PO 05/13/25 06:00 05/17/25 05:30 40 MG Levothyroxine Sodium 88 mcg QAM@0600 PO 05/13/25 06:00 05/17/25 05:30 88 MCG Atorvastatin Calcium 40 mg HS PO 05/12/25 22:00 05/16/25 22:29 40 MG Enoxaparin Sodium 80 mg Q12HR SC 05/12/25 22:00 05/17/25 11:42 80 MG Metoprolol Tartrate 50 mg BID PO 05/13/25 22:00 05/16/25 22:23 50 MG Furosemide 20 mg DAILY IV 05/16/25 10:00 05/17/25 10:58 20 MG Losartan Potassium 25 mg DAILY PO 05/16/25 10:00 05/17/25 10:58 25 MG Empaglifozin 10 mg DAILY PO 05/16/25 10:00 05/17/25 10:58 10 MG objective GENERAL: Alert and oriented x 3. No acute distress. EYES: PERRL, EOMI. Anicteric. HENT: Moist mucous membranes. LUNGS: Clear to auscultation bilaterally. CARDIOVASCULAR: Irregular rate and rhythm. ABDOMEN: Soft, nontender and nondistended. EXTREMITIES: No edema. NEUROLOGIC: No focal neurological deficits. SKIN: Warm, dry. laboratory and microbiology Laboratory Tests 05/17/25 02:20 Test 05/17/25 02:20 Range/Units Serum Glucose 96 74-106 mg/dL Problem List DeNovo decompensated HFrEF, NYHA class III. Atrial fibrillation with rapid ventricular response (on Pradaxa), uncontrolled rate. History of direct current cardioversion in 2022. Peripheral arterial disease status post left lower extremity revascularization. Hypertension. Dyslipidemia. Chronic kidney disease. Thyroid disease. History of tobacco use. Gout. End-stage dilated cardiomyopathy. Assessment/Plan Continued all current supportive medical care. Lipitor, Metoprolol. DVT and GI prophylactics. Diuretics with Lasix. Losartan. Additional plan as per the hospital course. Plan discussed with: Patient LORIN KASPER MD May 17, 2025 19:09
[2025-05-18 05:00] VITALS: BP 112/60; PULSE 60; RESP 17; TEMP 98.7; O2SAT 93
[2025-05-18] MEDS: LIDOCAINE VISCOUS 2% 15ML UD PO ONE (07:25)
[2025-05-18] MEDS: fentaNYL CITRATE 100 MCG/2 ML VL IV ONE (07:25)
[2025-05-18] MEDS: METOPROLOL TARTRATE 1MG/1ML-5ML VIAL IV ONE ×2 (07:25)
[2025-05-18] MEDS: MIDAZOLAM HCL 2MG/2ML 2ml VIAL (1mg/ml) IV ONE (07:25)
[2025-05-18] MEDS: fentaNYL CITRATE 100 MCG/2 ML VL ONE (07:26)
[2025-05-18] MEDS: MIDAZOLAM HCL 2MG/2ML 2ml VIAL (1mg/ml) ONE (07:26)
[2025-05-18 08:00] VITALS: PULSE 68; PULSE 69
[2025-05-18 09:00] VITALS: BP 137/59; PULSE 63; RESP 18; TEMP 97.4; O2SAT 94
--- NOTE | 2025-05-18 11:46 | DVHDS2 ---
Discharge Summary Date of Admission May 12, 2025 at 15:34 Date of Discharge: May 18, 2025 Admitting Diagnosis # paroxysmal AFib CHADS-VASc score 4 # ?UTI #hypertension #GERD # hypothyroidism #dyslipidemia Labs/Diagnostic Data: Laboratory Results Test 05/17/25 02:20 05/16/25 05:21 05/13/25 06:07 05/12/25 16:50 White Blood Count 6.5 10^3/uL (4.4-10.8) Red Blood Count 4.10 10^6/uL (4.0-5.20) Hemoglobin 12.6 g/dL (12.2-16.2) Hematocrit 38.1 % (36.0-46.0) Mean Corpuscular Volume 92.9 fL (80.0-100.0) Mean Corpuscular Hemoglobin 30.8 pg (28.0-32.0) Mean Corpuscular Hemoglobin Concent 33.2 g/dL (32.0-36.0) Red Cell Distribution Width 14.7 % (11.8-14.3) Platelet Count 210 10^3/uL (140-450) Mean Platelet Volume 9.0 fL (6.9-10.8) Neutrophils (%) (Auto) 61.8 % (37.0-80.0) Lymphocytes (%) (Auto) 24.1 % (10.0-50.0) Monocytes (%) (Auto) 10.1 % (0.0-12.0) Eosinophils (%) (Auto) 3.5 % (0.0-7.0) Basophils (%) (Auto) 0.5 % (0.0-2.0) Neutrophils # (Auto) 4.0 10 ^3/uL (1.6-8.6) Lymphocytes # (Auto) 1.6 10 ^3/uL (0.4-5.4) Monocytes # (Auto) 0.7 10 ^3/uL (0-1.3) Eosinophils # (Auto) 0.2 10 ^3/uL (0-0.8) Basophils # (Auto) 0 10 ^3/uL (0-0.2) Nucleated Red Blood Cells 0.1 % Sodium Level 144 mmol/L (136-145) Potassium Level 4.7 mmol/L (3.5-5.1) Chloride Level 104 mmol/L (98-107) Carbon Dioxide Level 29 mmol/L (20-31) Anion Gap 11 (5-15) Blood Urea Nitrogen 31 mg/dL (9-23) Creatinine 1.75 mg/dL (0.550-1.02) Glomerular Filtration Rate Calc 30 mL/min (>90) BUN/Creatinine Ratio 17.7 (10.0-20.0) Serum Glucose 96 mg/dL (74-106) Calcium Level 9.7 mg/dL (8.7-10.4) Magnesium Level 2.3 mg/dL (1.6-2.6) Total Bilirubin 0.8 mg/dL (0.2-1.0) Aspartate Amino Transferase (AST) 22 U/L (13-40) Alanine Aminotransferase (ALT) 11 U/L (7-40) Alkaline Phosphatase 107 U/L (46-116) Total Protein 6.7 g/dL (5.7-8.2) Albumin 4.2 g/dL (3.2-4.8) Hemoglobin A1c 5.5 % A1C (<5.7) Prothrombin Time 12.2 sec (9.3-11.8) Prothrombin Time INR 1.17 (0.9-1.15) Activated Partial Thromboplast Time 43.5 SEC (24.5-34.5) Direct Bilirubin 0.2 mg/dL (<0.3) Troponin I High Sensitivity 7 ng/L (</=34) Triglycerides Level 137 mg/dL (< 150) Cholesterol Level 112 mg/dL (< 200) LDL Cholesterol 57 mg/dL (< 100) HDL Cholesterol 36 mg/dL (40-59) Test 05/12/25 13:58 05/12/25 13:28 Urine Color Colorless (Yellow) Urine Clarity Turbid (Clear) Urine pH 6.0 (5.0-9.0) Urine Specific [place] 1.005 (1.001-1.035) Urine Protein Negative (Negative) Urine Ketones Negative (Negative) Urine Blood Negative /uL (Negative) Urine Nitrite Negative (Negative) Urine Bilirubin Negative (Negative) Urine Urobilinogen Normal mg/dL (Negative) Urine Leukocyte Esterase 3+ /uL (Negative) Urine RBC 4 /hpf (0 - 4) Urine Microscopic WBC 64 /HPF (0-5) Urine Squamous Epithelial Cells Few /hpf (<5) Urine Bacteria Few /hpf (None Seen) Urine Glucose Normal mg/dL (Normal) B-Type Natriuretic Peptide 250.98 pg/mL (0-100) Thyroid Stimulating Hormone (TSH) 0.79 uIU/mL (0.55-4.78) Other Laboratory Tests 05/17/25 02:20 Brief Hx & Hospital Course: 75-year-old female with past medical history of paroxysmal AFib diagnosed in 2020 status post cardioversion, hypertension, gout, hypothyroidism, dyslipidemia, peripheral vascular disease status post left lower extremity grafting presented with complaints of palpitation and elevated heart rate. Patient mentioned for last three weeks her blood pressure monitor shows that she has been having heart rate 97-137. She also mentioned associated palpitations. She denied any chest pain and shortness of breath, nausea, vomiting, abdominal pain, dizziness, headache. Patient decided to come to the ER as her elevated heart rate was not getting better. She presented to the ER patient was diagnosed with AFib with RVR, was given metoprolol IV. Patient subsequently has cardioversion yesterday. Today her HR is sinus rhythm. I am going to discharge the patient home. Activity as tolerate, diet per home diet. Recommend cardiac diet. Follow up with PCP 1-2 weeks. 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 Physical examination. General Appearance: Alert, Oriented X3, Cooperative, No acute distress HEENT: Atraumatic, PERRLA, EOMI, Mucous membr. moist/pink Neck: Supple Lungs: Clear to auscultation, Normal air movement Cardiovascular: Regular rate, Normal S1, Normal S2, No murmurs, Gallops, Rubs Abdomen: Normal bowel sounds Neuro: Cranial nerves 3-12 NL Psych/Mental Status: Mental status NL Condition at Discharge: Stable Final Diagnosis/Problems List # paroxysmal AFib CHADS-VASc score 4 # ?UTI #hypertension #GERD # hypothyroidism #dyslipidemia Discharge Disposition: Home Discharge Instruct/Medications Diet: Cardiac 2g Na,low cholest Activity: No Restrictions, As Tolerated Medications: see med list. Scheduled Allopurinol (Allopurinol), 100 MG PO DAILY, (Reported) Amlodipine Besylate (Amlodipine Besylate), 5 MG PO HS, (Reported) Atorvastatin Calcium (Lipitor), 1 TAB PO QPM, (Reported) Dabigatran Etexilate Mesylate (Pradaxa), 1 CAP PO BID, (Reported) Furosemide (Furosemide), 40 MG PO DAILY, (Reported) Levothyroxine Sodium (Levothyroxine Sodium), 88 MCG PO QAM, (Reported) Losartan Potassium (Losartan Potassium), 50 MG PO DAILY, (Reported) Metoprolol Tartrate (Lopressor), 50 MG PO BID Pantoprazole Sodium Sesquihydr (Protonix), 40 MG PO DAILY, (Reported) Miscellaneous Medications Esomeprazole Magnesium Trihydr (Nexium), (Reported) Mirtazapine (Remeron), 15 MG OR, (Reported) Potassium Chloride (Klor-Con M20), 20 MEQ PO, (Reported) Simvastatin (Simvastatin), (Reported) Warfarin Sodium (Coumadin), (Reported) [calcium], (Reported) Discontinued Medications Atenolol (Tenormin), (Reported) Metoprolol Succinate (Metoprolol Succinate Er), 25 MG PO BID, (Reported) Discharge Statement: "Patient was advised to return to the ER or call 911 if any headaches, dizziness, shortness of breath, chest pain, abdominal pain, bleeding, fevers, or worsening of medical condition. Patient was counseled about treatment plan, medications, possible side effects, patientverbalized understanding. All questions were answered to the best of my ability. This discharge took greater then 30 minutes in planning, reviewing documentation, counseling the patient, and discussing with other team members." ASSESSMENT ASSESSMENT Assessment Date of Service: May 18, 2025 Billing Provider: THALIA OWUSU MD Common Visit Codes: 92917-LBD/OBS DISCH DAY >30min THALIA OWUSU MD May 18, 2025 11:46
[2025-05-18] MEDS ORDERED: MET25T PO (11:47)
[2025-05-18 12:37] VITALS: BP 137/59; PULSE 62; TEMP 36.3
[2025-05-18 12:56] VITALS: BP 120/55; PULSE 71; RESP 18; TEMP 97.5; O2SAT 93
--- NOTE | 2025-05-18 23:04 | DVHPN2 ---
Progress Note - Dictate Date Seen: May 18, 2025 Medical Necessity Reason Pt with a Central, PICC or Fol: No Subjective Patient was seen and evaluated in follow up. Patient has no new complaints at this time. Patient denies any cardiac symptoms. Patient is cardiac stable for discharge. Telemetry reviewed. vital signs Vital Sign Date Time Temp Pulse Resp B/P (MAP) Pulse Ox O2 Delivery O2 Flow Rate FiO2 05/18/25 12:56 97.5 71 18 120/55 (76) 93 97.5 05/18/25 07:55 Room Air* 0 21 Total Intake and Output 05/17/25 05/17/25 05/18/25 15:00 23:00 07:00 Intake Total 260 ml 300 ml Output Total 500 ml Balance -240 ml 300 ml medications Current Medications Medications Dose Ordered Sig/Kasi Route Start Time Stop Time Status Last Admin Dose Admin Pantoprazole Sodium 40 mg DAILY@0600 PO 05/13/25 06:00 05/18/25 05:32 40 MG Levothyroxine Sodium 88 mcg QAM@0600 PO 05/13/25 06:00 05/18/25 05:32 88 MCG Atorvastatin Calcium 40 mg HS PO 05/12/25 22:00 05/17/25 21:55 40 MG Enoxaparin Sodium 80 mg Q12HR SC 05/12/25 22:00 05/18/25 09:47 80 MG Metoprolol Tartrate 50 mg BID PO 05/13/25 22:00 05/17/25 21:56 50 MG Furosemide 20 mg DAILY IV 05/16/25 10:00 05/18/25 09:47 20 MG Losartan Potassium 25 mg DAILY PO 05/16/25 10:00 05/18/25 09:47 25 MG Empaglifozin 10 mg DAILY PO 05/16/25 10:00 05/18/25 09:47 10 MG objective GENERAL: Alert and oriented x 3. No acute distress. EYES: PERRL, EOMI. Anicteric. HENT: Moist mucous membranes. LUNGS: Clear to auscultation bilaterally. CARDIOVASCULAR: Irregular rate and rhythm. ABDOMEN: Soft, nontender and nondistended. EXTREMITIES: No edema. NEUROLOGIC: No focal neurological deficits. SKIN: Warm, dry. laboratory and microbiology Laboratory Tests 05/17/25 02:20 Test 05/17/25 02:20 Range/Units Serum Glucose 96 74-106 mg/dL Problem List Nello decompensated HFrEF, NYHA class III. Atrial fibrillation with rapid ventricular response (on Pradaxa), uncontrolled rate. History of direct current cardioversion in 2022. Peripheral arterial disease status post left lower extremity revascularization. Hypertension. Dyslipidemia. Chronic kidney disease. Thyroid disease. History of tobacco use. Gout. End-stage dilated cardiomyopathy. Assessment/Plan Continued all current supportive medical care. Lipitor, Metoprolol. DVT and GI prophylactics. Diuretics with Lasix. Losartan. Additional plan as per the hospital course. Plan discussed with: Patient LORIN KASPER MD May 18, 2025 13:20
== END 2025-05-18 13:46 | disposition home or self-care (01) | DRG 308 ==
LOC: ER 12:26 → EDBD 12:26 → OVERFLOW 15:34 → TELE-CENTR 23:45
PROVIDERS: ADMIT Internal Medicine; ATTEND Internal Medicine
PROC: 5A2204Z Restoration of Cardiac Rhythm, Single (ICD-10-PCS; principal; 2025-05-17)
PROC: B24BZZ4 Ultrasonography of Heart with Aorta, Transesophageal (ICD-10-PCS; 2025-05-17)
DX: I48.0 Paroxysmal atrial fibrillation (principal); I50.43 Acute on chronic combined systolic (congestive) and diastolic (congestive) heart failure; I13.0 Hypertensive heart and chronic kidney disease with heart failure and stage 1 through stage 4 chronic kidney disease, or unspecified chronic kidney disease; N17.9 Acute kidney failure, unspecified; N39.0 Urinary tract infection, site not specified; E03.9 Hypothyroidism, unspecified; N18.9 Chronic kidney disease, unspecified; I42.0 Dilated cardiomyopathy; E78.5 Hyperlipidemia, unspecified; K21.9 Gastro-esophageal reflux disease without esophagitis; M10.9 Gout, unspecified; Z87.891 Personal history of nicotine dependence; Z90.13 Acquired absence of bilateral breasts and nipples; Z90.710 Acquired absence of both cervix and uterus; Z98.51 Tubal ligation status; Z88.1 Allergy status to other antibiotic agents; Z88.8 Allergy status to other drugs, medicaments and biological substances; Z88.4 Allergy status to anesthetic agent; Z88.2 Allergy status to sulfonamides; Z79.899 Other long term (current) drug therapy
CPT/HCPCS: 36415; 71045; 80048; 80053; 80061; 80076; 81001; 83036; 83735; 83880; 84443; 84484; 85025; 85610; 85730; 86850; 86900; 86901; 87086; 92960; 93005; 93306; 93312; 97163; 99152; G0378; J2250